=== PATIENT | male | born 1960 | race Caucasian/White ===

== ENCOUNTER 2018-02-07 21:45 | Emergency (ER) | payer MEDICAID, MEDICARE ==
[2018-02-07 22:37] LABS: #Eosinphils 0.1 thou/uL (0.0-0.7); #Lymphocytes 3.5 thou/uL (1.20-3.40); #Monocytes 1.2 thou/uL (0.11-0.59); #Neutrophils 5.5 thou/uL (1.40-6.50); %Basophils 0.2 % (0.0-1.0); %Eosinophils 0.7 % (0.0-10.0); %Monocytes 11.3 % (0.0-10.0); %Neutrophils 53.8 % (42.0-75.0); Mean Corpuscular HGB CONC 35.5 g/dL (32.0-36.0); Mean Corpuscular Volume 84.6 fl (80.0-94.0); Mean Platelet Volume 7.3 fL (7.4-10.4); Platelet Count 308 thou/uL (130-400); RBC Distribution Width 13.1 % (11.5-14.5); Red Blood Cell (RBC) Count 5.34 mill/uL (4.70-6.10); White Blood Cell (WBC) Count 10.2 thou/uL (4.8-10.8)
[2018-02-07 22:59] LABS: ALT (SGPT) 33 U/L (8-55); AST (SGOT) 27 U/L (5-34); Albumin 4.3 g/dL (3.5-5.0); Alkaline Phosphatase 102 U/L (40-150); Anion Gap 16 mmol/L (10-20); BUN (Urea Nitrogen) 25 mg/dL (8.4-25.7); Bilirubin, Total 0.4 mg/dL (0.2-1.2); Calc. Creatinine Clearance 0 mL/min (70-130); Calcium 9.5 mg/dL (7.8-10.44); Carbon Dioxide 20 mmol/L (22-29); Chloride 101 mmol/L (98-107); Estimated GFR-MDRD 32; Globulin 5.1 g/dL (2.4-3.5); Glucose 279 mg/dL (70-105); Potassium 4.7 mmol/L (3.5-5.1); Protein, Total 9.4 g/dL (6.0-8.3); Sodium 132 mmol/L (136-145)
[2018-02-07 23:02] LABS: CKMB 1.2 ng/mL (0-6.6); Troponin I Less than 0.010 ng/mL (< 0.028)
--- NOTE | 2018-02-07 23:48 | RAD ---
TWO VIEW CHEST SERIES: INDICATIONS: Cough. Pharyngitis. FINDINGS: The lungs are clear. No effusion or pneumothorax. The cardiac silhouette and mediastinal structures are of normal caliber. IMPRESSION: There is no focal consolidation. POS: [facility]
[2018-02-08 03:30] LABS: PTT 28.2 SEC (22.9-36.1); Prothrombin Time 13.3 SEC (12.0-14.7)
[2018-02-08 03:31] LABS: D-Dimer Test 0.55 *mcg/mL (0.27-0.43)
[2018-02-08] MEDS ORDERED: Ondansetron ODT 4 MG TAB ONE (03:37)
== END 2018-02-08 04:38 | disposition home or self-care (01) ==
LOC: ERS 21:45
DX: J40 Bronchitis, not specified as acute or chronic (principal); N17.9 Acute kidney failure, unspecified; Z71.6 Tobacco abuse counseling; B20 Human immunodeficiency virus [HIV] disease; I10 Essential (primary) hypertension; E11.9 Type 2 diabetes mellitus without complications; E78.00 Pure hypercholesterolemia, unspecified; F17.210 Nicotine dependence, cigarettes, uncomplicated
CPT/HCPCS: 36415; 71046; 80053; 82553; 83605; 83880; 84484; 85025; 85379; 85610; 85730; 93005; 94640; 96360; 99406; J7620; Q0162

== ENCOUNTER 2018-03-21 22:16 | Inpatient (IN) | payer MEDICARE, MEDICAID ==
[2018-03-21] MEDS ORDERED: Promethazine HCl 25 MG/ML VIAL ONE (23:10)
--- NOTE | 2018-03-21 23:33 | RAD ---
SINGLE VIEW OF THE CHEST: 03/21/18 COMPARISON: 11/11/16 HISTORY: Left flank pain and lower abdominal pain. Recent fever. FINDINGS: Single view of the chest shows a normal sized cardiomediastinal silhouette. There is no evidence of c onsolidation, mass, or pleural effusion. The bones are unremarkable. IMPRESSION: No evidence of acute cardiopulmonary disease. POS: [facility]
[2018-03-21 23:34] LABS: #Basophils 0.1 thou/uL (0.0-0.2); #Lymphocytes 3.4 thou/uL (1.20-3.40); #Monocytes 1.4 thou/uL (0.11-0.59); #Neutrophils 12.3 thou/uL (1.40-6.50); %Basophils 0.3 % (0.0-1.0); %Eosinophils 0.2 % (0.0-10.0); %Lymphocytes 19.7 % (21.0-51.0); %Monocytes 7.9 % (0.0-10.0); %Neutrophils 71.9 % (42.0-75.0); Hemoglobin 17.1 g/dL (14.0-18.0); Mean Corpuscular HGB CONC 37.3 g/dL (32.0-36.0); Mean Corpuscular Hemoglobin 30.7 pg (27.0-31.0); Mean Corpuscular Volume 82.2 fL (78.0-98.0); Mean Platelet Volume 6.9 fL (7.4-10.4); Platelet Count 269 thou/uL (130-400); RBC Distribution Width 13.5 % (11.5-14.5); Red Blood Cell (RBC) Count 5.58 mill/uL (4.70-6.10); White Blood Cell (WBC) Count 17.1 thou/uL (4.8-10.8)
[2018-03-21 23:44] LABS: Bilirubin Negative (Negative); Blood, Urine Small (Negative); Clarity CLOUDY (Clear); Glucose, Urine (Dipstick) >=1000 mg/dL (Negative); Leukocyte Moderate (Negative); Nitrite Negative (Negative); Protein, Urine (Dipstick) 30 mg/dL (Neg-Trace); Urobilinogen 0.2 mg/dL (0.2-1.0); pH, Urine 6.5 (5.0-9.0)
[2018-03-21 23:46] LABS: Bacteria/HPF 1+ HPF (None Seen); Hyaline Casts/LPF 0-3 HYALINE CAST LPF (0-3 Hyaline); Pathc Cast-AUWi Flag 0.29 (0-2.49); RBC/HPF 0-3 HPF (0-3); Squamous Epithelial None Seen HPF (0-3)
[2018-03-21 23:49] LABS: Yeast-AUWi Flag 171.5 (0-25.0)
[2018-03-21 23:50] LABS: CKMB 1.5 ng/mL (0-6.6); Troponin I Less than 0.010 ng/mL (< 0.028)
[2018-03-21 23:59] LABS: Yeast-All Forms None Seen HPF (None Seen)
[2018-03-22 00:07] LABS: ALT (SGPT) Less than 35 U/L (8-55); Albumin 4.3 g/dL (3.5-5.0); Alkaline Phosphatase 65 U/L (40-150); BUN (Urea Nitrogen) 11 mg/dL (8.4-25.7); CK (CPK) 133 U/L (30-200); Calc. Creatinine Clearance 0 mL/min (70-130); Calcium 9.4 mg/dL (7.8-10.44); Carbon Dioxide 18 mmol/L (22-29); Chloride 97 mmol/L (98-107); Estimated GFR-MDRD 88; Globulin 6.4 g/dL (2.4-3.5); Glucose 203 mg/dL (70-105); Lipase 113 U/L (8-78); Protein, Total 10.7 g/dL (6.0-8.3); Sodium 127 mmol/L (136-145)
[2018-03-22 00:58] LABS: AST (SGOT) 48 U/L (5-34)
[2018-03-22 01:05] LABS: Anion Gap 16 mmol/L (10-20)
[2018-03-22] MEDS ORDERED: Acetaminophen 325 MG TAB PO PRN (02:10)
[2018-03-22] MEDS ORDERED: Ondansetron HCl/PF 4 MG/2 ML Vial IVP PRN (02:10)
[2018-03-22] MEDS ORDERED: HYDROcodone/Acetaminophen 5/325 mg Tablet PO PRN ×2 (02:10)
[2018-03-22] MEDS ORDERED: Ondansetron ODT 4 MG TAB SL PRN (02:10)
[2018-03-22] MEDS ORDERED: Sodium Chloride 0.45% 1,000 ML IV SCH (02:15)
[2018-03-22] MEDS: Sodium Chloride 0.9% 1,000 ML IV SCH ×3 (02:22→17:58)
[2018-03-22] MEDS: Acetaminophen 325 MG TAB PO PRN (02:42)
[2018-03-22] MEDS: cefTRIAXone\\ROCEPHIN 1 GM in Sodium Chloride 0.9% 100 ML IVPB SCH (02:54)
[2018-03-22 03:15] LABS: #Basophils 0.1 thou/uL (0.0-0.2); #Lymphocytes 3.1 thou/uL (1.20-3.40); %Basophils 0.4 % (0.0-1.0); %Eosinophils 0.2 % (0.0-10.0); %Lymphocytes 20.3 % (21.0-51.0); %Monocytes 6.5 % (0.0-10.0); %Neutrophils 72.6 % (42.0-75.0); Hemoglobin 14.7 g/dL (14.0-18.0); Mean Corpuscular HGB CONC 36.1 g/dL (32.0-36.0); Mean Corpuscular Hemoglobin 30.2 pg (27.0-31.0); Mean Corpuscular Volume 83.7 fL (78.0-98.0); Mean Platelet Volume 7.1 fL (7.4-10.4); Platelet Count 245 thou/uL (130-400); RBC Distribution Width 13.4 % (11.5-14.5); Red Blood Cell (RBC) Count 4.87 mill/uL (4.70-6.10); White Blood Cell (WBC) Count 15.1 thou/uL (4.8-10.8)
[2018-03-22 03:32] LABS: Lactic Acid 1.2 mmol/L (0.5-2.2)
[2018-03-22] MEDS ORDERED: Dextrose 5% in Water 1,000 ML IV PRN (04:29)
[2018-03-22] MEDS ORDERED: Dextrose 50% Abboject 50 ML SYRINGE SLOW IVP PRN (04:29)
[2018-03-22 05:31] LABS: Chloride 104 mmol/L (98-107); Potassium 4.5 mmol/L (3.5-5.1); Sodium 130 mmol/L (136-145)
[2018-03-22 05:32] LABS: Glucose 195 mg/dL (70-105)
[2018-03-22 05:34] LABS: Anion Gap 13 mmol/L (10-20); Carbon Dioxide 18 mmol/L (22-29)
[2018-03-22 05:36] LABS: BUN (Urea Nitrogen) 10 mg/dL (8.4-25.7); Calc. Creatinine Clearance 105 mL/min (70-130); Estimated GFR-MDRD 73
--- NOTE | 2018-03-22 06:23 | HP ---
CODE STATUS: FULL CODE. TIME OF EVALUATION: 1:05 a.m. CHIEF COMPLAINT: Abdominal pain. HISTORY OF PRESENT ILLNESS: This is a 57-year-old male with past medical history of HIV, who follows with Dr. Sorensen as an outpatient, came to the hospital after having abdominal pain that was severe, starting this morning, but gets worse with food. The abdominal pain is mostly in the epigastric area, radiation to the left. Patient also reported recent fever of 100.4, now with nausea. The patient's symptoms started suddenly, have not improved. The CAT scan was done in ER showed patient has acute pancreatitis. Patient reported that he had pancreatitis in the past. Of note, Dr. Sorensen has been following this patient for HIV and has made recent changes in patient's home medications. List will need to be updated at this time. REVIEW OF SYSTEMS: Constitutional: No fever or chills or generalized weakness. Respiratory: No cough, no sputum production. Cardiovascular: No chest pain, palpitations, shortness of breath. Gastrointestinal: Patient has nausea, vomiting, no diarrhea, epigastric abdominal pain that is severe as described in HPI. STUDENT SUCCESS ADVISOR: No dizziness, headache, or feeling lightheaded. Genitourinary: No burning on urination. Extremities: No leg swelling. All other systems were reviewed and negative except for the findings mentioned above. PAST MEDICAL HISTORY: Positive for HIV, hypertension, diabetes, high cholesterol, pancreatitis. FAMILY HISTORY: Positive for father having diabetes. PAST SURGICAL HISTORY: Tonsillectomy, appendectomy, ureteral stricture removed. PSYCHIATRIC HISTORY: No previous psychiatric history. SOCIAL HISTORY: Former tobacco user, quit smoking past year. Drinks socially. No drug use. Lives at home with family. ALLERGIES: PENICILLIN and SULFA. REPORTED MEDICATIONS: Glimepiride, Pristiq, omeprazole, metformin, Prezista, VESIcare, fenofibrate, Crestor, Januvia. PHYSICAL EXAMINATION: VITAL SIGNS: On presentation blood pressure 151/93 with heart rate 120, respiratory rate was 22, abdominal pain 10/10, saturation was 98 on room air. GENERAL APPEARANCE: The Patient is alert, oriented, in distress due to abdominal pain. HEENT: Eyes: Normal conjunctivae. Moist oral mucosa, anicteric. NECK: No JVD. RESPIRATORY: Bilateral air entry. No rales, no wheezing. Symmetric expansion. CARDIOVASCULAR: Normal rate, regular rhythm. No murmurs, no gallop, no edema. ABDOMEN: The patient has tenderness. Abdomen is soft, normal bowel sounds. MUSCULOSKELETAL: Baseline range of motion and strength. No tenderness. SKIN: Warm and intact. No pallor, no rash, no redness. NEUROLOGIC: Baseline sensory. No evidence of any new focal weakness. Denies speech. Cranial nerves seems to be intact. PSYCHIATRIC: The patient is in a good mood. No anxiety, oriented, optimal judgment. LABORATORY DATA: Patient has white count of 17.1 with hemoglobin 17, MCV 82, platelet count 269. Sodium 127, potassium 4, chloride 97, carbon dioxide was 18 , anion gap 16, BUN 11, creatinine 0.89, GFR 88, glucose 203, lactic acid 2.2, calcium 9.4, magnesium 3. Total bilirubin 1, AST 48, serum total protein 10.7, albumin 4.3. UA was done. Patient has white count of urine greater than 50 too numerous to count. Chest x-ray was reviewed. The patient has no evidence of any acute cardiopulmonary disease. The abdomen for obesity was discussed with the ER physician, who was performing physician. There are findings for acute pancreatitis on the CAT scan. EKG was reviewed, discussed with the performing physician in ER. EKG shows sinus tachycardia at the rate of 125, incomplete right RBBB. No evidence of any acute ischemic changes. ASSESSMENT AND PLAN: The patient will be placed in the hospital with following medical problems: 1. SIS secondary to acute pancreatitis, possible sepsis secondary to urinary tract infection, patient has tachycardia, fever, has been started on antibiotics. We will continue for now. Follow up cultures. Adjust treatment as needed. 2. Acute pancreatitis was seen on the CAT scan. Official radiology report needs to be followed. Patient receiving IV fluids, pain medication. 3. History of human immunodeficiency virus. Patient will follow up with Dr. Sorensen as outpatient, as per patient report, his human immunodeficiency virus medication has been changed in the past few days by Dr. Sorensen. We will consult Dr. Sorensen for further recommendations given the fact that this patient is an immunosuppressed host of human immunodeficiency virus that place him at high risk of complications from infection. 4. Intractable nausea and vomiting. The patient needed antiemetic medications. We will continue to treat symptoms. 5. Intractable pain. Patient needed opioids iv medications for ultimate control of the pain. this plae him at high risk fom complications from treatment. 6. Uncontrolled hypertension. We will reconcile home medications, adjust treatment as needed, we will not treat aggressively given the fact that the patient has possible underlying sepsis. 7. Chronic hyponatremia. Patient had sodium 127, no symptoms, we will monitor , this is moderate, we will treat accordingly. 8. Uncontrolled diabetes with blood sugar 203, place the patient on sliding scale. 9. Deep venous thrombosis prophylaxis. MTDD
[2018-03-22] MEDS: Ondansetron HCl/PF 4 MG/2 ML Vial IVP PRN ×3 (07:40→21:52)
[2018-03-22] MEDS: Enoxaparin Sodium 40 MG/0.4 ML SYRINGE SC SCH (08:30)
[2018-03-22] MEDS: HumaLOG 300 UNITS/3 ML VIAL SC PRN ×2 (12:24→21:52)
--- NOTE | 2018-03-22 14:32 | CT ---
PRELIMINARY REPORT/[facility]/EMERGENTY AFTER-HOURS PROCEDURE CT Abdomen and Pelvis With Intravenous Contrast CLINICAL HISTORY: 57 years old, male; Pain; Abdominal pain; Generalized; Patient HX: M57 presents to ed C/O abd pain th at began this am. Pt reports n/v began this am. Pt reports food exacerbates n/v. Pt localizes abd amy n to l side. Pt notes bms are unchanged. Pt denies cp or SOB. Pt reports fever of 100.4. Pt denies diarrhea, dysuria. Pt used to have a suprapubic cath. Pt is seen by dr. Sorensen for hiv. Pt jose luis es ETOH use. TECHNIQUE: Axial computed tomography images of the abdomen and pelvis with intravenous contrast. Coronal reformatted images were created and reviewed. COMPARISON: No relevant prior studies available. FINDINGS: Lung bases: There is subpleural atelectasis of the dependent portions of the lungs. ABDOMEN: Liver: Normal. No mass. Gallbladder and bile ducts: Multiple calcified gallstones are present. No ductal dilation. Pancreas: There is moderate diffuse peripancreatic inflammatory stranding and fluid, consistent with moderate acute pancreatitis. There is a nonspecific 7 mm hypodensity within the body/tail of the panc reas. No ductal dilation. Spleen: The spleen is normal. Adrenals: The adrenal glands are normal. Kidneys and ureters: There is mild to moderate bilateral hydroureteronephrosis probably related to ps eudoobstruction in this patient with distended bladder. No obstructing ureterolithiasis. Stomach and bowel: The stomach is normal. The duodenum is unremarkable. No obstruction. No mucosal th ickening. PELVIS: Appendix: No findings to suggest acute appendicitis. Bladder: The bladder is moderately distended. Reproductive: The prostate gland demonstrates moderate nonspecific enlargement. The seminal vesicles are normal. ABDOMEN and PELVIS: Intraperitoneal space: Normal. No free air. No significant fluid collection. Bones/joints: No acute fracture. No dislocation. Soft tissues: Normal. Vasculature: The aorta demonstrates mild atherosclerotic calcification. No abdominal aortic aneurysm. Lymph nodes: There is a RIGHT pulmonary fissural lymph node. IMPRESSION: 1. Moderate acute pancreatitis. 2. There is mild to moderate bilateral hydroureteronephrosis probably related to pseudoobstruction in this patient with distended bladder. No obstructing ureterolithiasis. Thank you for allowing us to participate in the care of your patient. Dictated and Authenticated by: Devon Corbin MD 03/22/2018 1:18 AM Central Time ([place] & [place]) FINAL REPORT ABDOMEN CT WITH CONTRAST PELVIC CT WITH CONTRAST: HISTORY: Nausea and vomiting. COMPARISON: 03/11/16. TECHNIQUE: Abdomen and pelvic CT are performed with IV contrast. Enteric contrast was not administered. Ramirez l reformatted images were submitted for interpretation. FINDINGS: This report is in agreement with the preliminary report by [facility]. There is inflammatory change involvi ng the distal body and tail of the pancreas, compatible with pancreatitis. There is a hypodensity in the distal body of the pancreas measuring 1.3 cm, incompletely evaluated. There is bilateral dilata tion of the intra- and extrarenal collecting systems, left greater than right. Correlate clinically. Dilatation of both ureters is noted on the previous examination. There is CT evidence of cholelith iasis without evidence of cholecystitis. POS: [facility]
[2018-03-22] MEDS ORDERED: Midazolam HCl 2 mg/2 ml Vial ONE (15:12)
[2018-03-22] MEDS ORDERED: Sodium Bicarbonate 2.5 MEQ/5 ML VIAL ONE (15:12)
[2018-03-22] MEDS ORDERED: Fentanyl 100 MCG/2 ML VIAL ONE (15:13)
[2018-03-22 15:22] LABS: PTT 33.4 SEC (22.9-36.1); Prothrombin Time 13.8 SEC (12.0-14.7)
--- NOTE | 2018-03-22 16:42 | CT ---
PROCEDURE NOTE: Date: 03/22/18 PREPROCEDURE DIAGNOSIS: Urethral injury and bladder distention. POSTPROCEDURE DIAGNOSIS: Urethral injury and bladder distention. PROCEDURE: CT guided suprapubic catheter placement. SHOTBLAST EQUIPMENT OPERATOR: Dr. Martinez. ANESTHESIA: 10 mL buffered 1% lidocaine. TECHNIQUE: Prior to the procedure, the risks and benefits of a CT guided suprapubic catheter were explained to t he patient and he consented fully to the procedure. The patient was scanned with a fiducial marker in place on the lower abdominal wall. The area of best entry into the bladder was marked on the skin. This area was then prepped and draped in the usual st erile fashion. Lidocaine was used to anesthetize the skin and soft tissues down towards the urinary bladder. A scan was performed with the lidocaine needle, showing appropriate direction of the lidocaine needle in rel ation to the urinary bladder. A skin incision was made, allowing for passage of the Bard suprapubic catheter biopsy device. This de vice was placed with a [address] in [address]. After the return of urine, the balloon was insufflated. A repeat scan was performed, showing the catheter within the urinary bladder. The cathet er was retracted as this was folded back on itself. A repeat scan showed the Kaur catheter and ballo on within the urinary bladder. The Kaur catheter was then secured to the skin with an 0 silk suture. A total of 1100 mL of yellow, non-cloudy urine was removed from the urinary bladder at the time of t he procedure. The patient tolerated the procedure well, without immediate postprocedure complication. IMPRESSION: Status post successful CT guided suprapubic catheter placement. POS: [facility]
--- NOTE | 2018-03-22 19:16 | CON ---
DATE OF CONSULTATION: 03/22/2018 REASON FOR CONSULTATION: Possible UTI. HISTORY OF PRESENT ILLNESS: A 57-year-old known to me from multiple prior clinic and hospital visits , who has a history of longstanding HIV infection, well controlled with excellent adherence to antire troviral therapy and a CD4 cell count in mid 600s, type 2 diabetes, obesity, urethral strictures, whi ch had been previously managed with a suprapubic catheter and eventual urethroplasty, which I believe was performed at the [facility] and a previous episode of pancreatitis, which was quite severe, treated in the past with resolution, who now presents with new onset of abdominal pain, which localizes to the l eft flank, mid abdominal area and suprapubic region, which has been presenting over the past 2 days b efore admission. This was associated with tachycardia and mild elevation of temperature. PHYSICAL EXAMINATION: VITAL SIGNS: Initial findings included temperature 100, BP 130/60. LUNGS: Clear. HEART: Normal. ABDOMEN: With mild distention. No joint inflammatory activity noted. LABORATORY DATA: Initial white cell count 17,000, platelets 269 and creatinine 0.89. Lactic acid 2. 2, albumin 4.3, WBC count in urinalysis greater than 50 to too numerous to count. Chest x-ray withou t any infiltrates. The patient had an abdomen and pelvis CT scan completed and this demonstrated mod erate acute pancreatitis, mild to moderate bilateral hydroureteronephrosis and a distended gallbladde r. Initial lipase was 113, albumin 4.3, serum total protein 10.7. The patient when I examined him, he was in pain in the left flank and mid abdominal area. He also schwarz d marked tenderness in the suprapubic region. He denied any headaches, no shortness of breath, no di arrhea. He is still able to void without dysuria or frequency. No joint symptoms. PAST MEDICAL HISTORY: Longstanding HIV infection with excellent control on Prezista and Tivicay, pre vious episode of severe pancreatitis, abdominal pain, urethral stricture managed initially with supra pubic catheter, eventually, patient underwent a urethroplasty, I believe in mid 2016 at the [facility] and h ad been doing well after the procedure. The suprapubic catheter was able to be removed and he starte d to void again without the need for Kaur catheter. SOCIAL HISTORY: Chronic smoker. Lives alone in the area. ALLERGIES: PENICILLIN, SULFA DRUGS with rash. PAST SURGICAL HISTORY: Appendectomy, suprapubic catheter placement, urethroplasty. FAMILY HISTORY: Noncontributory. CURRENT MEDICATIONS: Include, Tylenol, ceftriaxone, dextrose, enoxaparin, glucagon, insulin, ondanse michelle. PHYSICAL EXAMINATION: VITAL SIGNS: T-max 100.4, now 99.6, blood pressure 150/90, pulse 107, respirations 18, O2 sat 95%. SKIN: The patient has a peripheral IV access. No Karu catheter, awake, oriented, pleasant. Sclera e are white. Pupils equal, conjunctivae normal. Oral cavity moist, quite a few teeth in place in de cent shape. NECK: Supple, no jugular distention or carotid bruits. LUNGS: Symmetric air entry without crackles or wheezing. CARDIOVASCULAR: S1, S2, regular rate. No S3, S4. No significant murmurs. ABDOMEN: Distended. Marked tenderness in suprapubic area with distention of the bladder. GENITAL: Normal. EXTREMITIES: No joint inflammatory activity. Pulses are 1+ in dorsalis pedis. Plantar responses ar e flexure. Strength in upper and lower extremities are preserved. NEUROLOGIC: Cognitive function appears to be intact. LABORATORY DATA: Sodium 127, creatinine 0.9 and 1.05. Liver profile with AST 48. Magnesium 3.0, li pase 113. White cell count to 17,000, now 15,000, hemoglobin 14, platelets 245. Urinalysis greater than 50 WBCs. Urine culture preliminary results indicate young culture, further incubation needed. Blood cultures still pending. CT findings had been discussed above. ASSESSMENT: 1. Longstanding human immunodeficiency virus infection with excellent viremia control and adequate C D4 cell count. 2. Urological complications with urethral stricture requiring suprapubic catheter placement and even tual urethroplasty last year at [facility]. 3. Episode of pancreatitis in the past. 4. Recurrence of the abdominal pain, low-grade temperature elevation, abnormal urinalysis. DISCUSSION: The clinical findings are consistent with obstruction of urinary tract with paradoxical overflow urine output associated with marked distention of the urinary bladder and hydronephrosis. T his is probably precipitating the mild elevation in the pancreatic enzymes. I do not think that the primary reason for admission was pancreatitis, but the urinary tract obstruction. Continue antimicro bial therapy as currently, add the antiretroviral therapy. The patient is on the medications that he should continue taking. I have contacted Dr. English, a radiologist and requested that he places a lobo prapubic catheter after discussing with Dr. Kang. After treatment of the infection, the patient w ill be eligible for revision of the urethroplasty.
[2018-03-23] MEDS: Sodium Chloride 0.9% 1,000 ML IV SCH ×4 (00:53→20:53)
[2018-03-23] MEDS: Ondansetron HCl/PF 4 MG/2 ML Vial IVP PRN ×3 (03:35→16:32)
[2018-03-23] MEDS: cefTRIAXone\\ROCEPHIN 1 GM in Sodium Chloride 0.9% 100 ML IVPB SCH (03:35)
[2018-03-23] MEDS: Acetaminophen 325 MG TAB PO PRN (04:43)
[2018-03-23 04:45] VITALS: BMI 32.4
[2018-03-23] MEDS: Enoxaparin Sodium 40 MG/0.4 ML SYRINGE SC SCH (08:12)
[2018-03-23] MEDS: HumaLOG 300 UNITS/3 ML VIAL SC PRN ×2 (11:53→20:56)
--- NOTE | 2018-03-23 19:28 | PDOC.PN ---
- Subjective Encounter Start Date: 03/23/18 Encounter Start Time: 19:25 Subjective: f/u for abd pain suspected source secondary to urinary outlet obstruction -: s/p suprapubic catheter placement with 1.1L drained. Feels better overall. -: Also concern for pancreatitis with mildly elevated Lipase. - Objective Resuscitation Status: Resuscitation Status FULL:Full Resuscitation MAR Reviewed: Yes Vital Signs & Weight: Vital Signs (12 hours) Temp Pulse Resp BP BP Pulse Ox 03/23/18 15:15 99.6 F 96 18 122/70 94 L 03/23/18 12:03 99.3 F 96 16 130/84 95 03/23/18 08:08 98.8 F 96 18 118/76 96 Weight Admit Weight 212 lb 12.8 oz Weight 213 lb 6.4 oz I&O: 03/22/18 03/23/18 03/24/18 06:59 06:59 06:59 Intake Total 800 3590 3340 Output Total 850 8077 3550 Balance -50 -4487 -210 Result Diagrams: 03/22/18 03:07 03/22/18 04:41 Additional Labs: Accuchecks 03/23/18 03/23/18 03/23/18 17:04 11:02 06:03 POC Glucose 186 H 200 H 165 H 03/22/18 20:50 POC Glucose 209 H Microbiology 03/21/18 23:29 Urine voided Urine Culture - Preliminary Coagulase Neg Staphylococcus 03/21/18 23:12 Venous blood - Right Hand Blood Culture - Preliminary NO GROWTH AT 48 HOURS 03/21/18 22:43 Venous blood - Left Arm Blood Culture - Preliminary NO GROWTH AT 48 HOURS Laboratory Tests 03/21/18 03/21/18 03/21/18 22:43 22:43 22:43 WBC 17.1 H Sodium 127 L Carbon Dioxide 18 L Lactic Acid 2.2 Magnesium 3.0 H Lipase 113 H 03/22/18 03:07 WBC Sodium Carbon Dioxide Lactic Acid 1.2 Magnesium Lipase Radiology Reviewed by me: Yes (CT abd/pel - pancreatitis, mild hydroureteronephrosis) EKG Reviewed by me: Yes (Tele - SR in 90's) Phys Exam - Physical Examination Constitutional: NAD HEENT: PERRLA, sclera anicteric, oral pharynx no lesions Neck: no nodes, no JVD, supple, full ROM Respiratory: no wheezing, no rales, no rhonchi, clear to auscultation bilateral S1, S2 Cardiovascular: RRR, no significant murmur, no rub, gallop mild TTP in mid-epigastric region obese, suprapubic catheter in place Gastrointestinal: soft, no distention, positive bowel sounds Musculoskeletal: pulses present, edema present Neurological: normal sensation, moves all 4 limbs Psychiatric: normal affect, A&O x 3 Skin: no rash, normal turgor, cap refill <2 seconds Dx/Plan (1) Urinary retention Code(s): R33.9 - RETENTION OF URINE, UNSPECIFIED Status: Acute Comment: s/p suprapubic catheter placement, monitor UOP (2) Complicated UTI (urinary tract infection) Code(s): N39.0 - URINARY TRACT INFECTION, SITE NOT SPECIFIED Status: Acute Comment: Staph spp initially on UCx, continue Rocephin pending final ID (3) Chronic pancreatitis Code(s): K86.1 - OTHER CHRONIC PANCREATITIS Status: Chronic Comment: sec to hypertriglyceridemia and meds, supportive mgmt (4) HIV (human immunodeficiency virus infection) Status: Chronic Comment: Resume antiretroviral therapy (5) Hydronephrosis, bilateral Code(s): N13.30 - UNSPECIFIED HYDRONEPHROSIS Status: Chronic Comment: Suprapubic catheter placed 03/22/18 (6) DM type 2 (diabetes mellitus, type 2) Status: Chronic Qualifiers: Diabetes mellitus termite helper insulin use: without termite helper use Diabetes mellitus complication status: with unspecified complications Qualified Code(s) : E11.8 - Type 2 diabetes mellitus with unspecified complications Comment: ISS, Metformin and Januvia, ADA - Plan continue antibiotics, PT/OT, director of social media marketing, out of bed/ambulate, DVT proph w/ SCDs Stable overall -: SPT placed 03/22/18 -: Continue Rocephin pending final Ucx results -: Restart antiretroviral therapy -: AM lab: CMP, CBC * .
[2018-03-23] MEDS ORDERED: Fluticasone Propionate Nasal Spray 16 gm Bottle NASAL PRN (19:44)
[2018-03-23] MEDS: Rosuvastatin 10 MG TAB PO SCH (20:53)
[2018-03-23] MEDS: TIVICAY 50 MG PO SCH (20:53)
[2018-03-23] MEDS: TROSPIUM 20 MG TABLET PO SCH (20:53)
[2018-03-23] MEDS ORDERED: Non-Formulary Item 1 EACH (Dolutegravir Sodium [Tivicay] 50 MG) PO SCH (21:00)
[2018-03-24] MEDS: Acetaminophen 325 MG TAB PO PRN ×2 (01:36→20:21)
[2018-03-24] MEDS: cefTRIAXone\\ROCEPHIN 1 GM, Admixture Fee 1 EACH in Sodium Chloride 0.9% 100 ML IVPB SCH (04:29)
[2018-03-24] MEDS: Sodium Chloride 0.9% 1,000 ML IV SCH ×3 (04:29→18:50)
[2018-03-24 05:38] LABS: Band 7 % (5-11); Eosinophils 3 % (0-10); Hemoglobin 13.4 g/dL (14.0-18.0); Lymphocytes 15 % (21-51); MDiff Complete? YES; Mean Corpuscular HGB CONC 31.9 g/dL (32.0-36.0); Mean Corpuscular Hemoglobin 27.4 pg (27.0-31.0); Mean Platelet Volume 6.8 fL (7.4-10.4); Monocytes 9 % (0-10); Neutrophil 66 % (42-75); Platelet Count 235 thou/uL (130-400); RBC Distribution Width 13.9 % (11.5-14.5); Red Blood Cell (RBC) Count 4.88 mill/uL (4.70-6.10); White Blood Cell (WBC) Count 11.1 thou/uL (4.8-10.8)
[2018-03-24 05:46] LABS: ALT (SGPT) 15 U/L (8-55); AST (SGOT) 13 U/L (5-34); Albumin 3.3 g/dL (3.5-5.0); Alkaline Phosphatase 48 U/L (40-150); Anion Gap 15 mmol/L (10-20); BUN (Urea Nitrogen) 8 mg/dL (8.4-25.7); Bilirubin, Total 0.4 mg/dL (0.2-1.2); Calc. Creatinine Clearance 107 mL/min (70-130); Calcium 8.7 mg/dL (7.8-10.44); Carbon Dioxide 16 mmol/L (22-29); Chloride 108 mmol/L (98-107); Estimated GFR-MDRD 76; Globulin 3.5 g/dL (2.4-3.5); Glucose 161 mg/dL (70-105); Potassium 3.9 mmol/L (3.5-5.1); Protein, Total 6.8 g/dL (6.0-8.3); Sodium 135 mmol/L (136-145)
[2018-03-24] MEDS: Ondansetron HCl/PF 4 MG/2 ML Vial IVP PRN ×2 (07:27→18:40)
--- NOTE | 2018-03-24 07:42 | PRG ---
DATE OF SERVICE: 03/24/2018 He is feeling much better, still with some pain in the suprapubic area. No chest pain, no dyspnea. No diarrhea. Patient had a suprapubic catheter placed by Radiology yesterday. PHYSICAL EXAMINATION: VITAL SIGNS: His T-max 99.6, blood pressure 130/70. GENERAL: Awake, alert, oriented. LUNGS: Clear. CARDIOVASCULAR: S1, S2, regular rate. ABDOMEN: Soft, not distended or maybe mildly distended, mild tenderness in suprapubic area. EXTREMITIES: Moves extremities equally. LABORATORY DATA: White cell count 11.1, hemoglobin 13, platelets 235, 66% neutrophils, 7% bands. Cr eatinine is down to 1.01. Sodium 135, albumin 3.3. Microbiology with coagulase negative Staph in e urine pending susceptibility studies. The patient is currently receiving ceftriaxone and will wait for the susceptibility results for final adjustment of antimicrobial therapy. The patient will continue suprapubic catheter, eventually will need a revision of the area of urethral stricture, probably will have to be done by the urologist patric o performed the procedure originally at [facility].
[2018-03-24] MEDS ORDERED: ICOSAPENT ETHYL 2 GM PO SCH (08:00)
[2018-03-24] MEDS: Glimepiride 4 MG TAB PO SCH (08:23)
[2018-03-24] MEDS: Enoxaparin Sodium 40 MG/0.4 ML SYRINGE SC SCH (08:23)
[2018-03-24] MEDS: TROSPIUM 20 MG TABLET PO SCH ×2 (08:23→20:21)
[2018-03-24] MEDS: metFORMIN 500 MG TAB PO SCH ×2 (08:23→16:04)
[2018-03-24] MEDS: Fenofibrate Nanocrystallized 145 MG TAB PO SCH (08:23)
[2018-03-24] MEDS: Alogliptin 6.25 MG TAB PO SCH (08:23)
[2018-03-24] MEDS: Venlafaxine HCl XR 75 MG CAP PO SCH (08:24)
[2018-03-24] MEDS ORDERED: TIVICAY 50 MG PO SCH (09:00)
[2018-03-24] MEDS ORDERED: Non-Formulary Item 1 EACH (Dolutegravir Sodium [Tivicay] 50 MG) PO SCH (09:00)
[2018-03-24] MEDS ORDERED: COBICISTAT PO SCH (09:00)
[2018-03-24] MEDS ORDERED: PREZCOBIX 800 MG PO SCH (09:00)
[2018-03-24] MEDS ORDERED: [UNRECOGNIZED DRUG - OTHER] PO SCH (09:00)
[2018-03-24] MEDS ORDERED: DARUNAVIR PO SCH (09:00)
--- NOTE | 2018-03-24 10:27 | PDOC.PN ---
- Subjective Encounter Start Date: 03/24/18 Encounter Start Time: 10:25 Complains of some low back pain on the right. Norris it while in the shower this morning. Appetite is getting better. Minimal abd discomfort. - Objective Resuscitation Status: Resuscitation Status FULL:Full Resuscitation MAR Reviewed: Yes Vital Signs & Weight: Vital Signs (12 hours) Temp Pulse Resp BP BP Pulse Ox 03/24/18 07:18 98 F 98 18 150/86 H 96 03/24/18 03:47 98.6 F 95 15 133/76 94 L Weight Admit Weight 212 lb 12.8 oz Weight 209 lb 11.2 oz I&O: 03/23/18 03/24/18 03/25/18 06:59 06:59 06:59 Intake Total 3590 6440 Output Total 8077 6800 Balance -9271 -618 Result Diagrams: 03/24/18 04:30 03/24/18 04:30 Additional Labs: Accuchecks 03/24/18 03/23/18 03/23/18 05:42 20:32 17:04 POC Glucose 162 H 209 H 186 H 03/23/18 11:02 POC Glucose 200 H Phys Exam - Physical Examination Constitutional: NAD Neck: no JVD, supple Respiratory: no wheezing, no rales, no rhonchi, clear to auscultation bilateral Cardiovascular: RRR, no significant murmur, no rub Gastrointestinal: soft Modest TTP in lower abd bilaterally with voluntary guarding (excessive) Dx/Plan (1) Urinary retention Code(s): R33.9 - RETENTION OF URINE, UNSPECIFIED Status: Acute Comment: s/p suprapubic catheter placement, monitor UOP (2) Complicated UTI (urinary tract infection) Code(s): N39.0 - URINARY TRACT INFECTION, SITE NOT SPECIFIED Status: Acute Comment: Staph spp initially on UCx, continue Rocephin pending final ID (3) Sepsis Code(s): A41.9 - SEPSIS, UNSPECIFIED ORGANISM Status: Resolved Qualifiers: Sepsis type: sepsis due to unspecified organism Qualified Code(s): A41.9 - Sepsis, unspecified organism Comment: due to uti with indwelling spc+ (4) Chronic pancreatitis Code(s): K86.1 - OTHER CHRONIC PANCREATITIS Status: Chronic Comment: sec to hypertriglyceridemia and meds, supportive mgmt (5) DM type 2 (diabetes mellitus, type 2) Status: Chronic Qualifiers: Diabetes mellitus [facility] insulin use: without [facility] use Diabetes mellitus complication status: with unspecified complications Qualified Code(s) : E11.8 - Type 2 diabetes mellitus with unspecified complications Comment: ISS, Metformin and [place] ADA (6) HIV (human immunodeficiency virus infection) Status: Chronic Comment: Resume antiretroviral therapy - Plan * Ambulate.
--- NOTE | 2018-03-24 11:38 | CT ---
PROCEDURE NOTE: Date: 03/22/18 PREPROCEDURE DIAGNOSIS: Urethral injury and bladder distention. POSTPROCEDURE DIAGNOSIS: Urethral injury and bladder distention. PROCEDURE: CT guided suprapubic catheter placement. WEB SEARCH EVALUATOR: Dr. Martinez. ANESTHESIA: 10 mL buffered 1% lidocaine. TECHNIQUE: Prior to the procedure, the risks and benefits of a CT guided suprapubic catheter were explained to t he patient and he consented fully to the procedure. The patient was scanned with a fiducial marker in place on the lower abdominal wall. The area of best entry into the bladder was marked on the skin. This area was then prepped and draped in the usual st erile fashion. Lidocaine was used to anesthetize the skin and soft tissues down towards the urinary bladder. A scan was performed with the lidocaine needle, showing appropriate direction of the lidocaine needle in rel ation to the urinary bladder. A skin incision was made, allowing for passage of the Bard suprapubic catheter biopsy device. This de vice was placed with a [address] After the return of urine, the balloon was insufflated. A repeat scan was performed, showing the catheter within the urinary bladder. The cathet er was retracted as this was folded back on itself. A repeat scan showed the Kaur catheter and ballo on within the urinary bladder. The Kaur catheter was then secured to the skin with an 0 silk suture. A total of 1100 mL of yellow, non-cloudy urine was removed from the urinary bladder at the time of t he procedure. The patient tolerated the procedure well, without immediate postprocedure complication. IMPRESSION: Status post successful CT guided suprapubic catheter placement.
[2018-03-24] MEDS: Rosuvastatin 10 MG TAB PO SCH (20:21)
[2018-03-24] MEDS: TIVICAY 50 MG PO SCH (20:21)
[2018-03-25] MEDS: Sodium Chloride 0.9% 1,000 ML IV SCH ×2 (02:06→12:11)
[2018-03-25] MEDS: cefTRIAXone\\ROCEPHIN 1 GM, Admixture Fee 1 EACH in Sodium Chloride 0.9% 100 ML IVPB SCH (02:06)
[2018-03-25] MEDS: Ondansetron HCl/PF 4 MG/2 ML Vial IVP PRN (06:33)
[2018-03-25] MEDS: TROSPIUM 20 MG TABLET PO SCH (08:11)
[2018-03-25] MEDS: Glimepiride 4 MG TAB PO SCH (08:11)
[2018-03-25] MEDS: Venlafaxine HCl XR 75 MG CAP PO SCH (08:11)
[2018-03-25] MEDS: Fenofibrate Nanocrystallized 145 MG TAB PO SCH (08:11)
[2018-03-25] MEDS: Alogliptin 6.25 MG TAB PO SCH (08:11)
[2018-03-25] MEDS: Enoxaparin Sodium 40 MG/0.4 ML SYRINGE SC SCH (08:12)
[2018-03-25] MEDS: metFORMIN 500 MG TAB PO SCH (08:12)
[2018-03-25 12:10] VITALS: BP 137/80; TEMP 98.5
== END 2018-03-25 15:34 | disposition home or self-care (01) | DRG 872 ==
LOC: ERS 22:16 → 2NO 03-22 01:06
PROVIDERS: ADMIT Hospitalist; ATTEND Hospitalist
PROC: 0T9B30Z Drainage of Bladder with Drainage Device, Percutaneous Approach (ICD-10-PCS; principal; 2018-03-22)
DX: A41.9 Sepsis, unspecified organism (principal); E87.1 Hypo-osmolality and hyponatremia; K86.1 Other chronic pancreatitis; N13.6 Pyonephrosis; I45.10 Unspecified right bundle-branch block; Z21 Asymptomatic human immunodeficiency virus [HIV] infection status; I10 Essential (primary) hypertension; E78.00 Pure hypercholesterolemia, unspecified; E11.65 Type 2 diabetes mellitus with hyperglycemia; R33.9 Retention of urine, unspecified; B95.7 Other staphylococcus as the cause of diseases classified elsewhere; E78.1 Pure hyperglyceridemia; Z88.0 Allergy status to penicillin; Z88.2 Allergy status to sulfonamides; Z87.19 Personal history of other diseases of the digestive system; Z83.3 Family history of diabetes mellitus; Z87.891 Personal history of nicotine dependence; Z79.899 Other long term (current) drug therapy; Z79.84 Long term (current) use of oral hypoglycemic drugs; Z87.448 Personal history of other diseases of urinary system; T50.905S Adverse effect of unspecified drugs, medicaments and biological substances, sequela; Y92.9 Unspecified place or not applicable
CPT/HCPCS: 36415; 36416; 51102; 71045; 74177; 77002; 80048; 80053; 81003; 81015; 82553; 83605; 83690; 83735; 84484; 85007; 85025; 85027; 85610; 85730; 87040; 87077; 87086; 87186; 93005; 94760; 96361; 96365; 96375; A4216; C2627; J0696; J1650; J1956; J2250; J2270; J2405; J2550; J3010; J7050

== ENCOUNTER 2018-04-13 03:27 | Inpatient (IN) | payer MEDICARE, MEDICAID ==
[2018-04-13] MEDS ORDERED: Ondansetron HCl/PF 4 MG/2 ML Vial ONE (05:16)
[2018-04-13] MEDS ORDERED: Morphine 4 MG/ML VIAL ONE (05:16)
[2018-04-13 05:57] LABS: #Basophils 0.1 thou/uL (0.0-0.2); #Monocytes 0.9 thou/uL (0.11-0.59); #Neutrophils 9.6 thou/uL (1.40-6.50); %Basophils 0.6 % (0.0-1.0); %Eosinophils 0.3 % (0.0-10.0); %Lymphocytes 15.6 % (21.0-51.0); %Monocytes 7.2 % (0.0-10.0); %Neutrophils 76.2 % (42.0-75.0); Hemoglobin 15.6 g/dL (14.0-18.0); Mean Corpuscular HGB CONC 34.3 g/dL (32.0-36.0); Mean Corpuscular Hemoglobin 28.5 pg (27.0-31.0); Mean Platelet Volume 6.6 fL (7.4-10.4); Platelet Count 356 thou/uL (130-400); RBC Distribution Width 13.7 % (11.5-14.5); Red Blood Cell (RBC) Count 5.46 mill/uL (4.70-6.10); White Blood Cell (WBC) Count 12.5 thou/uL (4.8-10.8)
[2018-04-13 06:09] LABS: ALT (SGPT) 38 U/L (8-55); AST (SGOT) 27 U/L (5-34); Albumin 4.2 g/dL (3.5-5.0); Alkaline Phosphatase 84 U/L (40-150); Anion Gap 19 mmol/L (10-20); BUN (Urea Nitrogen) 26 mg/dL (8.4-25.7); Bilirubin, Total 0.3 mg/dL (0.2-1.2); Calc. Creatinine Clearance 0 mL/min (70-130); Calcium 9.4 mg/dL (7.8-10.44); Carbon Dioxide 19 mmol/L (22-29); Chloride 99 mmol/L (98-107); Estimated GFR-MDRD 36; Globulin 4.2 g/dL (2.4-3.5); Glucose 310 mg/dL (70-105); Potassium 5.2 mmol/L (3.5-5.1); Protein, Total 8.4 g/dL (6.0-8.3); Sodium 132 mmol/L (136-145)
[2018-04-13 06:27] LABS: INR-International Normal Ratio 0.9; Prothrombin Time 12.4 SEC (12.0-14.7)
[2018-04-13 06:35] LABS: Lipase 2277 U/L (8-78)
[2018-04-13 06:56] LABS: PTT 25.4 SEC (22.9-36.1)
[2018-04-13] MEDS ORDERED: Dextrose 5% in Water 1,000 ML IV PRN (08:08)
[2018-04-13] MEDS ORDERED: Dextrose 50% Abboject 50 ML SYRINGE SLOW IVP PRN (08:08)
--- NOTE | 2018-04-13 08:59 | CT ---
PRELIMINARY REPORT/[facility]/EMERGENTY AFTER-HOURS PROCEDURE CT Abdomen and Pelvis With Intravenous Contrast EXAM DATE/TIME: 04/13/2018 6:07 AM CLINICAL HISTORY: 57 years old, male; Pain; Abdominal pain; Localized; Lower; Prior surgery; Patient HX: Er 6; M57 pres ents to the ed due to abd pain (lower abd) onset around midnight when he was going to bed. PT reports having x1 episode of vomiting and reports nausea. Urologist, cordell. PT reports having an appendectomy. TECHNIQUE: Axial computed tomography images of the abdomen and pelvis with intravenous contrast. Coronal reformatted images were created and reviewed. COMPARISON: CT Abdomen Pelvis W Con 2018-03-22 00:20 FINDINGS: Tubes, lines and devices: There is a suprapubic urinary bladder catheter. The catheter is in normal p osition. The urinary bladder is collapsed around the catheter. Lower thorax: There are moderate coronary vascular calcifications. There is atelectasis within the kye ngs. ABDOMEN: Liver: There is stable hepatomegaly that measures 21.6 cm craniocaudal length. No acute hepatic proce ss. Gallbladder and bile ducts: There is cholelithiasis without evidence of gallbladder inflammation. No evidence of stone within a bile duct. Pancreas: There is increased acute pancreatitis of the pancreatic tail. There is a stable 1.1 cm hypo dense lesion within the pancreatic tail on axial image 31. There is no portal vein thrombosis, arteri al pseudoaneurysm, pancreatic necrosis or organized intraperitoneal fluid collection. Spleen: Normal. No splenomegaly. Adrenals: Normal. No mass. Kidneys and ureters: Normal. No hydronephrosis. Stomach and bowel: There is mild reactive wall thickening of the proximal descending colon. There is no evidence of primary bowel inflammation or bowel obstruction. Appendix: No appendix is specifically identified. There is no fluid collection or inflammatory strand ing in the right lower quadrant. PELVIS: Bladder: Unremarkable as visualized. Reproductive: Unremarkable as visualized. ABDOMEN and PELVIS: Intraperitoneal space: No organized fluid collection or free gas. Bones/joints: There is a complex thoracolumbar curvature. There is no acute osseous fracture. Soft tissues: Unremarkable. Vasculature: There are mild calcifications of the aorta. Lymph nodes: Normal. No enlarged lymph nodes. IMPRESSION: 1. There is increased acute pancreatitis of the pancreatic tail. There is a stable 1.1 cm hypodense l esion within the pancreatic tail on axial image 31 which could be a small and intrapancreatic pseudoc yst or intraductal pancreatic mucinous neoplasm. There is no portal vein thrombosis, arterial pseudoaneurysm, pancreatic necrosis or organized intraperitoneal fluid collection. Recommend a single follow-up abdominal MRI in 1 year to reevaluate the hypodense pancreatic lesion. A limited T2-weight ed MRI can be performed for routine follow-up. 2. There is cholelithiasis without evidence of gallbladder inflammation. 3. There is stable hepatomegaly that measures 21.6 cm craniocaudal length. 4. Additional nonacute findings as described above. Thank you for allowing us to participate in the care of your patient. Dictated and Authenticated by: Pj Torres DO 04/13/2018 6:57 AM Central Time ([place] & [place]) FINAL REPORT EMERGENCY AFTER HOURS ABDOMEN AND PELVIS CT SCAN WITH IV CONTRAST: Date: 04/13/18 Time: 0609 hours IMPRESSION: Evidence for bibasilar pulmonary atelectasis. Pancreatitis changes involving primarily the tail of th e pancreas with a small, stable, 1.1 cm diameter hypodense focus in the pancreatic tail. Cholelithias is. Stable hepatomegaly with fatty change. Report in agreement with preliminary report given on-call by Carmel. POS: [facility]
[2018-04-13] MEDS ORDERED: Morphine 4 MG/ML Carpuject SLOW IVP PRN (09:47)
[2018-04-13] MEDS: Enoxaparin Sodium 40 MG/0.4 ML SYRINGE SC SCH (10:21)
[2018-04-13] MEDS: Sodium Chloride 0.9% 1,000 ML IV SCH ×3 (10:22→20:18)
[2018-04-13] MEDS: Famotidine/PF 20 mg/2ml Vial SLOW IVP SCH ×2 (10:49→22:23)
--- NOTE | 2018-04-13 11:16 | HP ---
CHIEF COMPLAINT: Abdominal pain. HISTORY OF PRESENT ILLNESS: This patient is a 57-year-old male with a history of known prior pancrea titis who presented to the emergency department complaining of abdominal pain that hit him around mid night last night. The patient reports the pain was primarily in the left upper quadrant area and was very sharp in nature, but tends to change in character over time. He had some associated nausea and vomiting, but that appears to be generally resolved at this time. He denies any associated fevers o r chills. He denies any significant alcohol intake. Of note, the patient was seen in the emergency department on the of this month with similar symp toms; however, he eloped from the emergency department after admission was recommended at that time. REVIEW OF SYSTEMS: A 10-system review was negative except for those things mentioned in the history of present illness with the exception that the patient reports he does have some increased pain in th e left upper abdomen when he takes a deep breath. PAST MEDICAL HISTORY: Notable for hypertension, diabetes, hyperlipidemia, prior episodes of pancreat itis and HIV positivity. The patient also has a urethral stricture and was here earlier this month w ith a urinary tract infection. He had some urine retention and ultimately required a suprapubic cath eter placement. PAST SURGICAL HISTORY: Tonsillectomy, appendectomy, urethral stricture and suprapubic catheter. FAMILY HISTORY: Primarily notable for his father having diabetes. SOCIAL HISTORY: The patient has a history of smoking, quit last year. Drinks socially. He states h e only has 1 beer occasionally. No drugs. The patient lives independently. CODE STATUS: He identifies a friend name Keith Gallegos who would be his surrogate decision maker and tiffany matamoros cannot think of any family members who would be involved in his care. He is full code. ALLERGIES: SULFA and PENICILLIN. MEDICATIONS: Januvia 50 mg every day, Glucophage 500 mg p.o. b.i.d., VESIcare 5 mg every day, Cresto r 40 mg q.p.m., omeprazole 40 mg p.o. daily, Vascepa 2 grams p.o. b.i.d., glimepiride 4 mg p.o. daily , Flonase 1 spray per nostril every day p.r.n., TriCor 148 mg every day. Dolutegravir 50 mg p.o. ary ly and q.p.m., desvenlafaxine 50 mg every day, Darunavir/cobicstat 800-50 one p.o. daily. PHYSICAL EXAMINATION: VITAL SIGNS: BP is 150/93, respirations 18, temperature 98.7, O2 sat 94% on room air. GENERAL APPEARANCE: Age appropriate male. He is in no acute distress, but appears mildly uncomforta ble. HEENT: PERRL. No OP lesions. TMs were normal. NECK: Supple and symmetric without lymphadenopathy. CARDIOVASCULAR: Regular rate and rhythm without murmurs, gallops or rubs. CHEST: Lungs are clear to auscultation bilaterally with good chest wall expansion and air exchange. ABDOMEN: Reveals tenderness to palpation in the upper epigastric and left upper quadrant areas, slig htly in the left lower quadrant area. He has modest voluntary guarding, no rebound. No masses palpa ble. Bowel sounds are present. EXTREMITIES: Warm and dry without edema. : Reveals the indwelling suprapubic catheter which appears healthy. LABORATORY DATA: White count is 12.5, hemoglobin 15.6, platelets 356. INR 0.9, PTT 25.4. Sodium 13 2, potassium 5.2, chloride is 99, CO2 is 19, BUN 26, creatinine 1.92, glucose 310. LFTs normal. Alb umin 4.2, lipase 2277. CT scan of the abdomen has not been read by the radiologist yet, but per ER appears to show some evid ence of pancreatitis. ASSESSMENT AND PLAN: 1. Acute pancreatitis in a patient with a history of pancreatitis. We will place the patient in the hospital in inpatient status and anticipate a 2-3 day stay. We will hydrate with normal saline. Of igor pain management and keep p.o. intake to a minimum. 2. Acute renal insufficiency. The patient has a baseline creatinine around 1, however, it tends to be very labile. We will continue to monitor with hydration. 3. Hyponatremia. This may be partially some pseudohyponatremia due to some hyperglycemia as well as dehydration. We will hydrate with normal saline and continue to follow. 4. Hypernatremia. The patient does not have a history of significant hypernatremia however, this ma y be due to the dehydration and diminished renal function. Anticipate this will improve with hydrati on alone. 5. Diabetes mellitus with hyperglycemia. The patient is not taking p.o. We will keep him on Accu-Ch eks and sliding scale insulin. 6. Urethral stricture with indwelling suprapubic catheter. This patient has seen his urologist, Dr. Ward as an outpatient following his previous admission. He did a cystoscopy which revealed a p ersistent urethral stricture which was supposed to be addressed later this week. I will keep the sup rapubic catheter in place. 7. Human immunodeficiency virus positive. We will continue with his antiviral medications once they have been confirmed. 8. Hypertension. We will allow some antihypertensive medications with sips of water. 9. Hyperlipidemia. We will continue with his usual home medications once they are clarified.
[2018-04-13] MEDS: HumaLOG 300 UNITS/3 ML VIAL SC PRN (11:36)
[2018-04-13] MEDS ORDERED: ISOVUE-370 76%-LOCM 1 ML ONE (11:53)
[2018-04-14] MEDS: Sodium Chloride 0.9% 1,000 ML IV SCH (05:37)
[2018-04-14 06:18] LABS: #Basophils 0.1 thou/uL (0.0-0.2); #Eosinphils 0.1 thou/uL (0.0-0.7); #Lymphocytes 2.3 thou/uL (1.20-3.40); #Monocytes 1.4 thou/uL (0.11-0.59); #Neutrophils 8.9 thou/uL (1.40-6.50); %Basophils 0.7 % (0.0-1.0); %Eosinophils 0.6 % (0.0-10.0); %Monocytes 11.1 % (0.0-10.0); %Neutrophils 69.6 % (42.0-75.0); Mean Corpuscular HGB CONC 32.3 g/dL (32.0-36.0); Mean Corpuscular Hemoglobin 27.6 pg (27.0-31.0); Mean Corpuscular Volume 85.4 fL (78.0-98.0); Mean Platelet Volume 6.4 fL (7.4-10.4); Platelet Count 313 thou/uL (130-400); RBC Distribution Width 14.1 % (11.5-14.5); Red Blood Cell (RBC) Count 5.43 mill/uL (4.70-6.10); White Blood Cell (WBC) Count 12.8 thou/uL (4.8-10.8)
[2018-04-14 06:40] LABS: Anion Gap 15 mmol/L (10-20); BUN (Urea Nitrogen) 17 mg/dL (8.4-25.7); Calc. Creatinine Clearance 100 mL/min (70-130); Calcium 9.1 mg/dL (7.8-10.44); Carbon Dioxide 19 mmol/L (22-29); Chloride 109 mmol/L (98-107); Estimated GFR-MDRD 73; Glucose 163 mg/dL (70-105); Potassium 4.2 mmol/L (3.5-5.1); Sodium 139 mmol/L (136-145)
--- NOTE | 2018-04-14 11:12 | PDOC.PN ---
- Subjective Encounter Start Date: 04/14/18 Encounter Start Time: 11:10 Patient seen and examined, states he doesn't have any more nausea or vomitting, abdominal pain is much better. Still present but better. No other new issues in the last 24 hours, all questions answered. No family at bedside. - Objective Vital Signs & Weight: Vital Signs (12 hours) Temp Pulse Resp BP Pulse Ox 04/14/18 07:48 99.5 F 104 H 20 115/63 20 L 04/14/18 05:30 97.9 F 102 H 17 137/81 94 L 04/13/18 23:52 99.5 F 108 H 18 111/60 94 L Weight Weight 201 lb 15.095 oz I&O: 04/13/18 04/14/18 04/15/18 06:59 06:59 06:59 Intake Total 931 Output Total 3110 Balance -2179 Result Diagrams: 04/14/18 06:00 04/14/18 06:00 Additional Labs: Accuchecks 04/14/18 04/13/18 04/13/18 05:33 23:52 17:58 POC Glucose 154 H 157 H 137 H 04/13/18 11:20 POC Glucose 225 H Phys Exam - Physical Examination Constitutional: NAD HEENT: PERRLA, moist MMs, sclera anicteric Neck: no nodes, no JVD, supple Respiratory: no wheezing, no rales, no rhonchi Cardiovascular: RRR, no significant murmur, no rub Gastrointestinal: soft, non-tender, no distention Musculoskeletal: no edema, pulses present Neurological: non-focal, normal sensation Dx/Plan (1) Pancreatitis Code(s): K85.90 - ACUTE PANCREATITIS WITHOUT NECROSIS OR INFECTION, UNSP Status: Acute (2) DM type 2 (diabetes mellitus, type 2) Status: Chronic Qualifiers: Comment: ISS, Metformin and Januvia, ADA (3) HIV (human immunodeficiency virus infection) Status: Chronic Comment: Resume antiretroviral therapy (4) Hypertriglyceridemia Code(s): E78.1 - PURE HYPERGLYCERIDEMIA Status: Chronic (5) Obesity Code(s): E66.9 - OBESITY, UNSPECIFIED Status: Chronic - Plan * Start low fat diet * DC IVFs for now * continue with current medical management * If patient tolerating diet and clinically improving can likely be discharged in 24-48hrs * case and plan d/w patient at length, he understands and agrees with this plan
[2018-04-14] MEDS: Enoxaparin Sodium 40 MG/0.4 ML SYRINGE SC SCH (12:03)
--- NOTE | 2018-04-14 12:31 | PQF ---
CLINICAL DOCUMENTATION IMPROVEMENT CLARIFICATION FORM: ICD-10 Updated PLEASE DO AN ADDENDUM TO THE PROGRESS NOTE WITH ANY DOCUMENTATION UPDATES OR ADDITIONS AND CARRY THROUGH TO DC SUMMARY. THANK YOU. DATE: 04/14 ATTN: DR. NATALIE HAQUE Please exercise your independent, professional judgment in responding to the clarification form. Clinical indicators are provided on the bottom of this form for your review. Please check appropriate box(s): [ ] Acute Renal Failure (ARF) / Acute Kidney Injury (BERTRAM) [ ] Other Etiology or underlying conditions related to the diagnosis of ARF/ BERTRAM: [ x ] Acute on Chronic Renal Failure please specify Stage of CKD ____3____ (see below) [ ] Other diagnosis [ ] Unable to determine National Kidney Foundation Guidelines for CKD Staging Stage I Kidney damage with normal or increased GFR GFR > 90 Stage II Kidney damage with mildly decreased GFR GFR 60-89 Stage III Kidney damage with moderately decreased GFR GFR 30-59 Stage IV Kidney damage with severely decreased GFR GFR 16-29 Stage V Kidney failure GFR<15 ESRD End Stage Renal Disease On dialysis For continuity of documentation, please document condition throughout progress notes and discharge summary. Thank You. CLINICAL INDICATORS - SIGNS / SYMPTOMS / LABS BUN/CR: 26 CR: 1.92 GFR: 36 (ON ADMIT, 04/13) 17 1.04 73 (04/14) PHYSICIAN H&P DOCUMENTATION 04/13: ASSESSMENT & PLAN: 2) ACUTE RENAL INSUFFICIENCY. THE PATIENT HAS A BASELINE CREATININE AROUND 1, HOWEVER, IT TENDS TO BE VERY LABILE. WE WILL CONTINUE TO MONITOR W/HYDRATION RISK FACTOR: PANCREATITIS W/ASSOCIATED N/V (H&P, 04/13) TREATMENT: IVF (NS (04/13 - ) NPO STATUS (04/13) THANK YOU! Gabrielle (This form is maintained as a part of the permanent medical record) 2014 [employer]. All Rights Reserved Gabrielle La RN, BSN [email or web address] Office: [phone] [facility]BLE HOSPITALBreanna
[2018-04-14] MEDS: HumaLOG 300 UNITS/3 ML VIAL SC PRN (13:28)
[2018-04-14] MEDS: Famotidine/PF 20 mg/2ml Vial SLOW IVP SCH (13:29)
[2018-04-14] MEDS: Famotidine 20 MG TAB PO SCH (20:01)
[2018-04-15] MEDS: HumaLOG 300 UNITS/3 ML VIAL SC PRN ×3 (06:37→17:13)
[2018-04-15] MEDS: Enoxaparin Sodium 40 MG/0.4 ML SYRINGE SC SCH (07:52)
[2018-04-15] MEDS: Famotidine 20 MG TAB PO SCH (07:52)
[2018-04-15 17:17] VITALS: BP 145/75; TEMP 98.3
--- NOTE | 2018-04-15 18:04 | PDOC.PN ---
- Subjective Encounter Start Date: 04/15/18 Encounter Start Time: 09:00 Subjective: Patient was seen and examined by me with CLASSIFIER in the room. -: Patient is ambulating in his room, Just finished his breakfast -: Denies fever, Nausea, Vomiting, Abdominal pain - Objective MAR Reviewed: Yes Vital Signs & Weight: Vital Signs (12 hours) Temp Pulse Resp BP Pulse Ox 04/15/18 17:16 98.3 F 99 16 145/75 H 97 04/15/18 11:58 97.7 F 99 16 132/83 94 L 04/15/18 08:00 98.1 F 99 16 127/86 94 L Weight Weight 201 lb 15.095 oz I&O: 04/14/18 04/15/18 04/16/18 06:59 06:59 06:59 Intake Total 931 2230 Output Total 3110 1450 1350 Balance -2179 -1450 880 Result Diagrams: 04/14/18 06:00 04/14/18 06:00 Additional Labs: Accuchecks 04/15/18 04/15/18 04/15/18 11:57 04:55 01:20 POC Glucose 281 H 188 H 260 H 04/14/18 20:27 POC Glucose 186 H Phys Exam - Physical Examination HEENT: PERRLA, moist MMs, TM's clear Neck: no JVD Respiratory: no wheezing, no rales, no rhonchi, clear to auscultation bilateral Cardiovascular: RRR, no significant murmur, no rub Gastrointestinal: soft, non-tender, no distention, positive bowel sounds Patient has suprapubic catheter in place Musculoskeletal: no edema, pulses present Neurological: non-focal, normal sensation, moves all 4 limbs Psychiatric: normal affect, A&O x 3 Skin: no rash, normal turgor, cap refill <2 seconds Dx/Plan (1) Pancreatitis Code(s): K85.90 - ACUTE PANCREATITIS WITHOUT NECROSIS OR INFECTION, UNSP Status: Acute Qualifiers: Chronicity: acute Pancreatitis type: alcohol induced Acute pancreatitis complication: no infection or necrosis Qualified Code(s): K85.20 - Alcohol induced acute pancreatitis without necrosis or infection Comment: IV fluids discontinued. Patient is tolerating his diet. Will discharge the patient after Lunch. Patient has been advised to follow up with his primary care physician in 7 days. (2) Acute renal failure (ARF) Status: Acute Qualifiers: Acute renal failure type: with other specified pathological lesion Qualified Code(s): N17.8 - Other acute kidney failure Comment: stable. (3) Urinary retention Code(s): R33.9 - RETENTION OF URINE, UNSPECIFIED Status: Chronic Comment: s/ p suprapubic catheter placement (4) Chronic suprapubic catheter Code(s): Z93.59 - OTHER CYSTOSTOMY STATUS Status: Chronic Comment: due to u.stricture (5) Chronic pancreatitis Code(s): K86.1 - OTHER CHRONIC PANCREATITIS Status: Chronic Comment: sec to Alcohol abuse, hypertriglyceridemia and meds. Advised to quit drinking alcohol (6) DM type 2 (diabetes mellitus, type 2) Status: Chronic Qualifiers: Comment: ISS, Metformin and Januvia, ADA (7) HIV (human immunodeficiency virus infection) Status: Chronic Comment: On antiretroviral therapy (8) Hypertriglyceridemia Code(s): E78.1 - PURE HYPERGLYCERIDEMIA Status: Chronic (9) Obesity Code(s): E66.9 - OBESITY, UNSPECIFIED Status: Chronic Comment: Diet andn exercise. Continue ASA, atorvastatin - Plan cont current plan of care, out of bed/ambulate * . - Discharge Day Minutes spent coordinating discharge of patient: 30 Encounter end time: 09:35 Review of Systems - Medications/Allergies Allergies/Adverse Reactions: Allergies Allergy/AdvReac Type Severity Reaction Status Date / Time Sulfa (Sulfonamide Allergy Severe Rash, Verified 11/11/16 17:17 Antibiotics) Chills Penicillins Allergy Intermediate Rash Verified 11/11/16 17:17
--- NOTE | 2018-04-16 14:46 | DIS ---
DATE OF ADMISSION: 04/13/2018 DATE OF DISCHARGE: 04/15/2018 DISCHARGE DIAGNOSES: 1. Acute pancreatitis. 2. Acute renal insufficiency. 3. History of hypertension. 4. Hyperlipidemia. 5. Human immunodeficiency virus positive. 6. Diabetes mellitus type 2. 7. Hyponatremia. PROCEDURES AND THERAPIES: Patient was brought into the hospital and admitted to be treated for acute pancreatitis. Patient was started on aggressive IV fluids. CT of the abdomen and pelvis was ordere d which showed acute pancreatitis of the pancreatic tail. Patient was then treated supportively. Vamshi reddy was made n.p.o. Patient was offered pain medication p.r.n. for his pain. For patient's acute renal insufficiency, patient was also hydrated. Patient had hyponatremia; however, this was most lik mercedes due to hypertonic hyponatremia due to hyperglycemia. HISTORY OF PRESENT ILLNESS AND HOSPITAL COURSE: The patient came in with abdominal pain that was loc ated in the left upper quadrant area. Per patient, the pain was very sharp in nature; therefore, the patient was admitted to the hospital and CT of the abdomen was ordered. Patient also complained of associated symptoms of nausea and vomiting. Per the hospital stay, patient was made n.p.o. and was s tarted on aggressive fluids. LABORATORY DATA: WBC was 12.8, hemoglobin is 15, platelets of 313. Coagulation: PT 12.4, INR 0.9, PTT 25.4. CONDITION ON DISCHARGE: The patient was seen on the day of discharge. Patient was ambulating withou t any difficulty. Patient denied any nausea, vomiting, fevers. Patient was tolerating diet and luis eduardo ent denied any abdominal pain. DISPOSITION: Patient's white count resolved. Patient denied any abdominal pain and the patient was tolerating his diet. Therefore, patient was started on home medications. The patient was discharged to follow up with his primary care doctor within a week. Patient was also advised to stop drinking alcohol. DISCHARGE MEDICATIONS: Kindly refer to electronic medical records for discharge medications.
== END 2018-04-15 17:20 | disposition home or self-care (01) | DRG 439 ==
LOC: ERS 03:27 → 3SE 09:45 → T4-B 04-14 18:03
PROVIDERS: ADMIT Internal Medicine; ATTEND Internal Medicine
DX: K85.90 Acute pancreatitis without necrosis or infection, unspecified (principal); E87.1 Hypo-osmolality and hyponatremia; N17.9 Acute kidney failure, unspecified; E86.0 Dehydration; E11.65 Type 2 diabetes mellitus with hyperglycemia; Z21 Asymptomatic human immunodeficiency virus [HIV] infection status; E66.9 Obesity, unspecified; K86.1 Other chronic pancreatitis; E78.1 Pure hyperglyceridemia; Z88.2 Allergy status to sulfonamides; Z88.0 Allergy status to penicillin; Z90.49 Acquired absence of other specified parts of digestive tract
CPT/HCPCS: 36415; 36416; 74177; 80048; 80053; 83690; 85025; 85610; 85730; 96361; 96374; 96375; A4216; J1650; J2270; J2405; S0028

== ENCOUNTER 2019-04-09 07:37 | Outpatient (CLI) | payer MEDICARE, MEDICAID ==
--- NOTE | 2019-04-09 09:24 | CT ---
CT PULMONARY LUNG SCAN: HISTORY: Heavy smoker for 10 years, then chewed tobacco for an additional 10 years. Smokes on and off. Quite approximately a year ago. Smoked 1-2 packs a day. FINDINGS: The lungs are clear of any infiltrative process. There are some minimal linear changes within the li ngula and left lower lobe which appear to represent scar. There is a pleural-based nodule seen along the major fissure on the right. It measures 6 mm. There is a right lower lobe pulmonary nodule. I t measures approximately 5 mm and is seen on axial image 148. No additional nodules are identified. Mediastinal structures appear unremarkable other than the presence of coronary calcifications. The v isualized liver parenchyma is normal. IMPRESSION: Lung RADS category 2: benign appearance or behavior. Continued annual screening followup with low-do se CT is recommended in 12 months. POS: [facility]
== END 2019-04-09 07:38 | disposition home or self-care (01) ==
LOC: CT 07:37
PROVIDERS: ATTEND Family Medicine Sports Medicine
DX: Z87.891 Personal history of nicotine dependence (principal)
CPT/HCPCS: G0297

== ENCOUNTER 2019-05-11 11:37 | Inpatient (IN) | payer MEDICARE, MEDICAID ==
--- NOTE | 2019-05-11 12:13 | RAD ---
EXAM: CHEST ONE VIEW HISTORY: Fever and chills. COMPARISON: 03/21/2018 FINDINGS: Cardiac silhouette is magnified by projection. Pulmonary vasculature is within normal limits. The jah gs are clear. Mild degenerative changes are seen in the spine. Chest is stable from prior exam. IMPRESSION: No acute cardiopulmonary process.
[2019-05-11 12:28] LABS: Bacteria/HPF 4+ HPF (None Seen); Bilirubin Negative (Negative); Blood, Urine 1+ (Negative); Clarity Turbid (Clear); Glucose, Urine (Dipstick) Greater than 1000 mg/dL (Negative); Leukocyte 500 Leu/uL (Negative); Nitrite Negative (Negative); Protein, Urine (Dipstick) 20 mg/dL (Neg-Trace); RBC/HPF 0-3 HPF (0-3); Squamous Epithelial 0-3 HPF (0-3); Urobilinogen Normal mg/dL (Less than 2); WBC/HPF Greater than 50 HPF (0-3)
[2019-05-11 12:44] LABS: #Eosinphils 0.1 thou/uL (0.0-0.7); #Lymphocytes 2.2 thou/uL (1.20-3.40); #Monocytes 0.8 thou/uL (0.11-0.59); %Basophils 0.2 % (0.0-1.0); %Eosinophils 0.7 % (0.0-10.0); %Lymphocytes 16.8 % (21.0-51.0); %Monocytes 6.3 % (0.0-10.0); Hemoglobin 16.6 g/dL (14.0-18.0); Mean Corpuscular HGB CONC 35.4 g/dL (32.0-36.0); Mean Corpuscular Volume 81.9 fL (78.0-98.0); Mean Platelet Volume 7.6 fL (7.4-10.4); Platelet Count 298 thou/uL (130-400); RBC Distribution Width 13.6 % (11.5-14.5); Red Blood Cell (RBC) Count 5.72 mill/uL (4.70-6.10); White Blood Cell (WBC) Count 13.2 thou/uL (4.8-10.8)
[2019-05-11 12:47] LABS: ALT (SGPT) 19 U/L (8-55); AST (SGOT) 20 U/L (5-34); Albumin 4.3 g/dL (3.5-5.0); Alkaline Phosphatase 92 U/L (40-150); Anion Gap 23 mmol/L (10-20); BUN (Urea Nitrogen) 31 mg/dL (8.4-25.7); Bilirubin, Total 0.5 mg/dL (0.2-1.2); Calc. Creatinine Clearance 0 mL/min (70-130); Calcium 9.5 mg/dL (7.8-10.44); Carbon Dioxide 15 mmol/L (22-29); Chloride 97 mmol/L (98-107); Estimated GFR-MDRD 41; Globulin 4.6 g/dL (2.4-3.5); Glucose 145 mg/dL (70-105); Potassium 4.3 mmol/L (3.5-5.1); Protein, Total 8.9 g/dL (6.0-8.3); Sodium 131 mmol/L (136-145)
[2019-05-11] MEDS ORDERED: Acetaminophen 325 MG TAB ONE (12:54)
[2019-05-11] MEDS ORDERED: cefTRIAXone\\ROCEPHIN 1 GM VIAL ONE (13:51)
[2019-05-11] MEDS ORDERED: Ondansetron ODT 4 MG TAB SL PRN (16:02)
[2019-05-11] MEDS ORDERED: Ondansetron PF 4 MG/2 ML Vial IVP PRN (16:02)
[2019-05-11] MEDS ORDERED: Acetaminophen 325 MG TAB PO PRN (16:02)
[2019-05-11 16:57] VITALS: BMI 31.8
[2019-05-11] MEDS ORDERED: Hyoscyamine Sulfate SL 0.125 mg Tablet SL PRN (18:52)
[2019-05-11] MEDS ORDERED: Dextrose 5% in Water 1,000 ML IV PRN (18:53)
[2019-05-11] MEDS ORDERED: Bisacodyl 10 MG SUPP PR PRN (18:53)
[2019-05-11] MEDS ORDERED: Dextrose 50% Abboject 50 ML SYRINGE SLOW IVP PRN (18:53)
--- NOTE | 2019-05-11 20:19 | HP ---
PRIMARY CARE PROVIDER: Dr. Osman Clarke. CHIEF COMPLAINT: Fever. HISTORY OF PRESENT ILLNESS: Mr. Harvey is a pleasant 58-year-old gentleman, who was seen at [facility] on May 11, 2019. He was hospitalized at this facility in March 2018 for bladder outlet obstruction, requiring suprapubic catheter placement, urinary tract infection with staphylococcal epidermidis, sepsis, chronic HIV, and pancreatitis. He reports that the suprapubic catheter was removed late last year. He has not had any urinary problems since then. He reports being compliant with all his medications. Over the last 3 days, he has had brownish-yellow urine with blood clots. He also had chills this morning with a temperature of 101.2 degrees Fahrenheit. He denies any chest pain. He reports chronic pain in his right testicle following his surgery. REVIEW OF SYSTEMS: All systems were reviewed and found to be negative. PAST MEDICAL HISTORY: HIV, hypertension, diabetes mellitus, dyslipidemia, and pancreatitis. PAST SURGICAL HISTORY: Tonsillectomy, appendectomy, surgery for urethral stricture. SOCIAL HISTORY: The patient denies tobacco use, alcohol use, or recreational drug use. ALLERGIES: PENICILLIN AND SULFA. CURRENT MEDICATIONS: 1. Crestor 40 mg every other day. 2. Hyoscyamine 0.125 mg every 6 hours as needed. 3. Azelastine nasal spray 1 spray to each naris 2 times a day. 4. Prezcobix 1 tablet daily. 5. Pristiq 50 mg daily. 6. Tivicay 50 mg daily. 7. Jardiance 25 mg daily. 8. Ezetimibe 10 mg daily. 9. Fenofibrate 145 mg daily. 10. Glimepiride 4 mg daily. 11. Vascepa 2 g 2 times a day. 12. Metformin 1000 mg 2 times a day. 13. Omeprazole 40 mg daily. 14. Januvia 50 mg daily. 15. Solifenacin 5 mg daily. FAMILY HISTORY: He denies any family history of premature coronary artery disease. PHYSICAL EXAMINATION: GENERAL: On examination, Mr. Harvey is awake and alert, not in acute distress. VITAL SIGNS: Blood pressure is 124/77, pulse is 102, respiratory rate is 20, oxygen saturation 94% on room air, and temperature is 99.4. He is obese, with a BMI of 31.8. EYES: No scleral icterus. No conjunctival pallor. ENT: Moist mucosal membranes. No oropharyngeal erythema or exudates. NECK: Supple, nontender, trachea is midline. RESPIRATORY: Accessory muscles of breathing are not active. Chest wall movements are symmetric bilaterally. LUNGS: Clear to auscultation without wheeze, rhonchi, or crepitations. CARDIOVASCULAR: S1 and S2 are heard, regular. Peripheral pulses palpable. No carotid bruit. No pericardial rub. ABDOMEN: Soft, nontender, bowel sounds are heard. GENITOURINARY: No lesions. NEUROLOGIC: Cranial nerves 2 through 12 intact, deep tendon reflexes 2+. SKIN: No rashes or subcutaneous nodules. MUSCULOSKELETAL: Power is 5/5 in all 4 extremities. LYMPHATIC: No cervical lymphadenopathy. PSYCHIATRIC: Normal mood, normal affect, the patient is oriented to person, place, and time. LABORATORY DATA: Mr. Harvey's labs and investigations were reviewed. I reviewed his electrocardiogram, which shows sinus tachycardia, no ST changes to suggest an acute coronary syndrome. I also reviewed his chest x-ray, which does not show any pulmonary infiltrates. He has leukocytosis with 13,200 white cells, of which 76% are neutrophils. Hemoglobin and platelet count are normal. He has hyponatremia with sodium of 131, normal potassium, decreased carbon dioxide of 15, elevated anion gap of 23, elevated blood urea nitrogen of 31, elevated creatinine of 1.70, glucose is mildly elevated at 145, normal AST, normal ALT, normal alkaline phosphatase, normal troponin-I, and normal albumin. Urinalysis is positive for leukocyte esterase, negative for nitrite. There are also 0 to 3 squamous epithelial cells and 4+ bacteria. ASSESSMENT AND PLAN: Mr. Harvey is a pleasant 58-year-old gentleman, who was seen at [facility] on May 11, 2019. His problem list includes: 1. Severe sepsis: Mr. Harvey is presenting with severe sepsis with acute kidney injury. Most likely source of infection is the urinary tract. He will be admitted to the hospital for further management. He will receive intravenous fluids and antibiotics. 2. Urinary tract infection: The patient has received levofloxacin and ceftriaxone. We will also cover him with vancomycin until it is clear what we are dealing with. We will consult Infectious Disease Service for opinion and help with management. 3. Acute kidney injury: Provide intravenous hydration, hold nephrotoxic medications, recheck creatinine. 4. Metabolic acidosis: Most likely secondary to sepsis and uremia. We will recheck labs in the morning after treating. 5. Diabetes mellitus type 2: Hold metformin, continue the rest of his home medications. 6. History of human immunodeficiency virus: Continue home medications. 7. Hypertension: Monitor vital signs, titrate antihypertensives as needed. 8. Dyslipidemia: Continue ezetimibe and fenofibrate. Also continue Crestor. LEVEL OF RISKS: High. LEVEL OF COMPLEXITY: High. Many thanks for allowing me to participate in your patient's care. Please feel free to contact me with any questions or concerns. Job ID: [id number]
[2019-05-11] MEDS ORDERED: Rosuvastatin 20 MG TAB PO SCH (21:00)
[2019-05-11] MEDS: Sodium Chloride 0.9% 1,000 ML IV SCH (21:09)
[2019-05-11] MEDS: Trospium 20 MG TAB PO SCH (21:10)
[2019-05-11] MEDS: Azelastine 137 MCG/Spray 30 ML NS SCH (22:58)
[2019-05-11] MEDS ORDERED: Dolutegravir Sodium [Tivicay] 50 MG PO SCH (23:00)
[2019-05-11] MEDS ORDERED: Darunavir/Cobicistat [Prezcobix 800 Mg-150 Mg Tablet] PO SCH (23:00)
[2019-05-12] MEDS: Sodium Chloride 0.9% 1,000 ML IV SCH ×2 (04:12→13:55)
[2019-05-12] MEDS: HumaLOG 300 UNITS/3 ML VIAL SC PRN ×2 (04:30→12:29)
[2019-05-12 04:52] LABS: #Eosinphils 0.1 thou/uL (0.0-0.7); #Lymphocytes 2.2 thou/uL (1.20-3.40); #Neutrophils 6.1 thou/uL (1.40-6.50); %Basophils 0.5 % (0.0-1.0); %Eosinophils 1.2 % (0.0-10.0); %Lymphocytes 23.1 % (21.0-51.0); %Monocytes 10.3 % (0.0-10.0); %Neutrophils 64.9 % (42.0-75.0); Hemoglobin 14.4 g/dL (14.0-18.0); Mean Corpuscular HGB CONC 33.3 g/dL (32.0-36.0); Mean Corpuscular Hemoglobin 27.7 pg (27.0-31.0); Mean Corpuscular Volume 83.1 fL (78.0-98.0); Mean Platelet Volume 7.3 fL (7.4-10.4); Platelet Count 263 thou/uL (130-400); RBC Distribution Width 13.7 % (11.5-14.5); Red Blood Cell (RBC) Count 5.18 mill/uL (4.70-6.10); White Blood Cell (WBC) Count 9.4 thou/uL (4.8-10.8)
[2019-05-12 05:17] LABS: Anion Gap 18 mmol/L (10-20); BUN (Urea Nitrogen) 23 mg/dL (8.4-25.7); Calc. Creatinine Clearance 81 mL/min (70-130); Carbon Dioxide 17 mmol/L (22-29); Chloride 106 mmol/L (98-107); Estimated GFR-MDRD 56; Glucose 152 mg/dL (70-105); Potassium 3.9 mmol/L (3.5-5.1); Sodium 137 mmol/L (136-145)
[2019-05-12] MEDS ORDERED: COBICISTAT PO SCH (08:00)
[2019-05-12] MEDS ORDERED: DARUNAVIR PO SCH (08:00)
[2019-05-12] MEDS: Glimepiride 4 MG TAB PO SCH (08:06)
[2019-05-12] MEDS: Fenofibrate Nanocrystallized 145 MG TAB PO SCH (08:07)
[2019-05-12] MEDS: Venlafaxine HCl XR 75 MG CAP PO SCH (08:07)
[2019-05-12] MEDS: Alogliptin 25 MG TAB PO SCH (08:07)
[2019-05-12] MEDS: Trospium 20 MG TAB PO SCH ×2 (08:07→20:01)
[2019-05-12] MEDS: Ezetimibe 10 MG TAB PO SCH (08:08)
[2019-05-12] MEDS: Empagliflozin [Jardiance] 25 MG PO SCH (08:12)
[2019-05-12] MEDS: ICOSAPENT ETHYL 1 GM PO SCH ×2 (08:12→20:03)
[2019-05-12] MEDS: Azelastine 137 MCG/Spray 30 ML NS SCH ×2 (08:14→20:02)
[2019-05-12] MEDS ORDERED: (Dolutegravir Sodium [Tivicay] 50 MG) PO SCH (09:00)
[2019-05-12] MEDS: cefTRIAXone\\ROCEPHIN 1 GM in Sodium Chloride 0.9% 100 ML IVPB SCH (13:55)
--- NOTE | 2019-05-12 16:22 | PDOC.HOSPP ---
- Subjective Encounter Date: 05/12/19 Encounter Time: 08:40 Subjective: Pt seen for followup re; severe sepsis. Feels better. - Objective Vital Signs & Weight: Vital Signs (12 hours) Temp Pulse Resp BP Pulse Ox 05/12/19 11:00 98.3 F 97 20 131/88 95 05/12/19 08:00 96 05/12/19 07:59 97.9 F 99 16 136/82 96 Weight Weight 209 lb 7 oz I&O: 05/11/19 05/12/19 05/13/19 06:59 06:59 06:59 Intake Total 4540 960 Balance 4540 960 Result Diagrams: 05/12/19 04:18 05/12/19 04:18 Additional Labs: Accuchecks 05/12/19 05/12/19 05/11/19 11:31 04:32 19:58 POC Glucose 171 H 152 H 290 H 05/11/19 16:40 POC Glucose 144 H Labs and MARs reviewed by me Hospitalist ROS - Review of Systems Constitutional: denies: fever, chills, sweats, weakness, malaise Cardiovascular: denies: chest pain, palpitations, orthopnea, paroxysmal noc. dyspnea, edema, light headedness Gastrointestinal: denies: nausea, vomitting, abdominal pain, diarrhea, constipation, melena, hematochezia Genitourinary: reports: hematuria. denies: dysuria, frequency, incontinence, retention Musculoskeletal: denies: neck pain, shoulder pain, arm pain, back pain, hand pain, leg pain, foot pain - Medication Medications: Active Medications Generic Name Dose Route Start Last Admin Trade Name Reginoq PRN Reason Stop Dose Admin Alogliptin Benzoate 12.5 mg 05/12/19 09:00 05/12/19 08:07 Alogliptin PO 12.5 mg DAILY SANTANA Administration Azelastine HCl 0 ml 05/11/19 21:00 05/12/19 08:14 Azelastine NS 1 spray BID SANTANA Administration Ezetimibe 10 mg 05/12/19 09:00 05/12/19 08:08 Zetia PO 10 mg DAILY SANTANA Administration Fenofibrate 145 mg 05/12/19 09:00 05/12/19 08:07 Tricor PO 145 mg DAILY SANTANA Administration Glimepiride 4 mg 05/12/19 07:30 05/12/19 08:06 Amaryl PO 4 mg DAILY-AC SANTANA Administration Ceftriaxone Sodium 1 gm/ 100 mls @ 200 mls/hr 05/12/19 14:00 05/12/19 13:55 Sodium Chloride IVPB 100 mls 1400 SANTANA Administration Levofloxacin 750 mg/ Device 150 mls @ 100 mls/hr 05/12/19 12:00 05/12/19 11: 40 IVPB 150 mls 1200 SANTANA Administration Sodium Chloride 1,000 mls @ 100 mls/hr 05/11/19 19:00 05/12/19 13:55 Normal Saline 0.9% IV 1,000 mls .Q10H SANTANA Administration Insulin Human Lispro 0 units 05/11/19 18:53 05/12/19 12:29 Humalog SC 2 unit .MILD SLIDING SCALE PRN Administration Mild Correctional Scale Pantoprazole Sodium 40 mg 05/12/19 09:00 05/12/19 08:07 Protonix PO 40 mg DAILY SANTANA Administration Empagliflozin [ 0 each 05/12/19 09:00 05/12/19 08:12 Jardiance] 25 Mg PO 1 each DAILY SANTANA Administration Icosapent Ethyl [ 0 each 05/12/19 09:00 05/12/19 08:12 Vascepa] 1g Cap PO 2 each BID SANTANA Administration Trospium 20 mg 05/11/19 21:00 05/12/19 08:07 Trospium PO 20 mg BID SANTANA Administration Venlafaxine HCl 75 mg 05/12/19 09:00 05/12/19 08:07 Effexor Xr PO 75 mg DAILY SANTANA Administration - Exam General Appearance: awake alert General - other findings: Obese Eye: anicteric sclera ENT: normocephalic atraumatic, moist mucosa Neck: supple, symmetric, no JVD, no thyromegaly Heart: RRR, no gallops, no rubs, normal peripheral pulses Respiratory: CTAB, no wheezes, no rales, no ronchi Gastrointestinal: soft, non-tender, non-distended, normal bowel sounds Neurological: no weakness Psychiatric: normal affect, normal behavior, A&O x 3 Hosp A/P (1) Severe sepsis Code(s): A41.9 - SEPSIS, UNSPECIFIED ORGANISM; R65.20 - SEVERE SEPSIS WITHOUT SEPTIC SHOCK Status: Acute (2) UTI (urinary tract infection) Status: Acute (3) Acute worsening of stage 3 chronic kidney disease Code(s): N18.3 - CHRONIC KIDNEY DISEASE, STAGE 3 (MODERATE) Status: Acute (4) DM type 2 (diabetes mellitus, type 2) Status: Chronic (5) HIV (human immunodeficiency virus infection) Status: Chronic - Plan continue antibiotics, out of bed/ambulate Severe sepsis improved. Discontinue vancomycin, continue ceftriaxone and levofloxacin for UTI secondary to presumptive Kleb/Enterobacter. Await sensitivities. Creatinine improved to 1.32. Consult walking program. Leucocytosis resolved. Metabolic acidosis improved. Anion gap normal today. Consult walking program. Continue Tivicay and Prezcobix for HIV. Blood sugars high, switch to moderate insulin sliding scale.
[2019-05-12] MEDS ORDERED: HumaLOG 300 UNITS/3 ML VIAL SC PRN (16:35)
--- NOTE | 2019-05-12 17:05 | CT ---
CT ABDOMEN NONCONTRAST CT PELVIS NONCONTRAST: (Urolithiasis protocol) DATE: 05/12/2019 HISTORY: 58-year-old male with urinary tract infection, fever, and urethral stricture. COMPARISON: 04/13/2018 TECHNIQUE: IV injection of iodinated contrast media: None Oral contrast media: None FINDINGS: Other than for urolithiasis, the lack of IV and oral contrast limits the evaluation. The Kaur catheter is no longer present. The bladder is now severely distended. It has thin, normal w all thickness. There is bilateral moderate hydroureter and bilateral hydronephrosis, moderate to severe. No calculus in the ureters, kidneys, or bladder. Enlarged prostate. Previously demonstrated a cute pancreatitis is no longer present. No pancreatic calcifications or pancreatic ductal dilation. Layer of multiple tiny gallstones near the gallbladder neck again demonstrated. No pericholecystic ed samina. Fatty liver. No splenomegaly. No abdominal aortic aneurysm. Normal adrenals and pancreas, within the limitations of a noncontrast scan. No small bowel dilation. No colonic diverticulitis. No ascites or pneumoperitoneum. No abscess. No co nsolidation or pleural effusion at lung bases. IMPRESSION: 1. Bilateral moderate to severe hydronephrosis, without urolithiasis. This is probably due to the sev erely distended urinary bladder. Consider Kaur catheter. 2. Hepatic steatosis. 3. Cholelithiasis without evidence of acute cholecystitis.
[2019-05-12] MEDS: Dolutegravir Sodium [Tivicay] 50 MG PO SCH (20:02)
[2019-05-12] MEDS: Darunavir/Cobicistat [Prezcobix 800 Mg-150 Mg Tablet] PO SCH (20:05)
[2019-05-12] MEDS ORDERED: Rosuvastatin 20 MG TAB PO SCH (21:00)
--- NOTE | 2019-05-12 21:22 | CON ---
DATE OF CONSULTATION: 05/12/2019 REASON FOR CONSULTATION: Urinary tract infection. HISTORY OF PRESENT ILLNESS: A 58-year-old known to us from multiple prior visits both here as well as the clinic with a longstanding history of HIV infection, prior episode of pancreatitis, urethral stricture, which had suprapubic catheter management, eventually had an urethroplasty by Dr. Ward at the [facility]. Suprapubic catheter was removed a few months ago and he has been able to void without any difficulties. Apparently, recently developed some right testicular pain and had some injections applied about a week ago. Subsequently noted some clots in his urine flow and some yellow exudate, developed chills and then was admitted. Initial temperature 99.4, BP 120/70, pulse 102, respirations 20 and he appeared in no distress. Examination was fairly unremarkable. Currently, he is awake and alert. He is voiding without any difficulty. No burning. He did have some decreased stream briefly a few days ago. The testicular pain is not there anymore. No back pain. No joint symptoms. No respiratory symptoms. No diarrhea or constipation. PAST MEDICAL HISTORY: Longstanding HIV infection, well controlled with Prezcobix and Tivicay, pancreatitis, quite severe with protracted hospital stay, prior urinary infection associated with the urethral stricture, previous suprapubic catheter which has been removed after urethroplasty done at the [facility]. PAST MEDICAL HISTORY: Hypertension type 2 diabetes, and dyslipidemia. PAST SURGICAL HISTORY: Tonsillectomy, appendectomy, and the above surgery. SOCIAL HISTORY: Never smoker. No drug use otherwise. ALLERGIES: PENICILLIN AND SULFA WITH RASHES. MEDICATIONS: 1. Crestor. 2. Hyoscyamine. 3. Azelastine. 4. Prezcobix. 5. Pristiq. 6. Tivicay. 7. Jardiance. 9. Fenofibrate. 10. Glimepiride. 11. Vascepa. 12. Metformin. 13. Omeprazole. 14. Januvia. 15. Solifenacin. FAMILY HISTORY: Noncontributory. MEDICATIONS: Here at the hospital he is on medicines as above-mentioned and Rocephin and levofloxacin. PHYSICAL EXAMINATION: VITAL SIGNS: He has been afebrile in the hospital. Other vital signs are normal. GENERAL: Appears in no distress. LYMPHATICS: No lymphadenopathy. SKIN: Normal. Peripheral IV access. HEENT: Ocular movements conjugate. Oral cavity normal. NECK: Supple. LUNGS: Symmetric, clear breath sounds. S1-S2. Regular rate. No S3 or S4. ABDOMEN: Soft. No evidence of bladder distention. No organomegaly. No ascites. GENITOURINARY: The testicular exam was normal without tenderness. The left testicle was large than the right. EXTREMITIES: No joint inflammatory activity, moves extremities equally. No edema. NEUROLOGIC: Nonfocal. LABORATORY DATA: White cell count was 13,000 now is 9.4, hemoglobin 14, platelets 263, and neutrophil percentage of 64%. Sodium 137, creatinine is at 1.3, which is down from admission when it was 1.7. Liver profile normal. Serum total protein 8.9, albumin 4.3. Leukocyte esterase 500, WBC greater than 50. IMAGING: Chest x-ray with no acute cardiopulmonary process. ASSESSMENT: 1. Longstanding human immunodeficiency virus infection with excellent control on. 2. Prezcobix and Tivicay. 3. Urethral stricture, prior urinary tract infections and suprapubic catheter, status post urethroplasty. 4. Pain in the right testicle, which was managed with local injections recently , not clear what the medication was given. The patient recalls that he was corticosteroid. 5. Chills with abnormal urine color, some hematuria. DISCUSSION: The patient most likely has invasive UTI, the reason for it is not clear. If he still has an element of obstruction of the outflow tract due to the stricture recurrence for example is one thing to consider. We will check ultrasound of his postvoid bladder residue by the nurse and a CT stone protocol. Await for the identification of the susceptibilities of the Klebsiella Enterobacter retrieved. Blood cultures thus far negative. Dr. Ward is moving over to [facility] here and will be following up with him. Job ID: [id number] [facility]
[2019-05-13] MEDS ORDERED: diphenhydrAMINE 25 MG CAP PO SCH (00:45)
[2019-05-13] MEDS: Sodium Chloride 0.9% 1,000 ML IV SCH ×2 (01:09→16:08)
[2019-05-13 06:39] LABS: #Basophils 0.1 thou/uL (0.0-0.2); #Eosinphils 0.3 thou/uL (0.0-0.7); #Lymphocytes 2.2 thou/uL (1.20-3.40); #Monocytes 0.8 thou/uL (0.11-0.59); #Neutrophils 3.7 thou/uL (1.40-6.50); %Eosinophils 4.7 % (0.0-10.0); %Lymphocytes 30.8 % (21.0-51.0); %Monocytes 11.4 % (0.0-10.0); %Neutrophils 52.1 % (42.0-75.0); Mean Corpuscular HGB CONC 34.2 g/dL (32.0-36.0); Mean Corpuscular Hemoglobin 28.5 pg (27.0-31.0); Mean Corpuscular Volume 83.4 fL (78.0-98.0); Mean Platelet Volume 6.9 fL (7.4-10.4); Platelet Count 280 thou/uL (130-400); RBC Distribution Width 13.9 % (11.5-14.5); Red Blood Cell (RBC) Count 5.61 mill/uL (4.70-6.10); White Blood Cell (WBC) Count 7.2 thou/uL (4.8-10.8)
[2019-05-13 07:02] LABS: Anion Gap 15 mmol/L (10-20); BUN (Urea Nitrogen) 19 mg/dL (8.4-25.7); Calc. Creatinine Clearance 83 mL/min (70-130); Calcium 9.7 mg/dL (7.8-10.44); Carbon Dioxide 19 mmol/L (22-29); Chloride 107 mmol/L (98-107); Estimated GFR-MDRD 57; Glucose 146 mg/dL (70-105); Sodium 137 mmol/L (136-145)
--- NOTE | 2019-05-13 07:24 | PDOC.HOSPP ---
- Subjective Encounter Date: 05/13/19 Encounter Time: 07:22 Subjective: pt slept well with no overnight events. Denies fevers, chills, dysuria, hematuria, c/p, and SOB. was able to ambulate yesterday around the floor without any issues. seen by Dr. Sorensen yesterday who ordered a CT ab/pelvis. - Objective Vital Signs & Weight: Vital Signs (12 hours) Temp Pulse Resp BP Pulse Ox 05/12/19 20:00 98.8 F 94 18 138/90 94 L Weight Weight 94.999 kg I&O: 05/12/19 05/13/19 05/14/19 06:59 06:59 06:59 Intake Total 4540 1440 Balance 4540 1440 Result Diagrams: 05/14/19 06:10 05/14/19 06:10 Additional Labs: Accuchecks 05/13/19 05/12/19 05/12/19 04:47 20:02 16:43 POC Glucose 159 H 144 H 212 H 05/12/19 11:31 POC Glucose 171 H Radiology Reviewed by me: Yes EKG Reviewed by me: No Hospitalist ROS - Review of Systems Constitutional: denies: fever, chills, sweats Respiratory: denies: cough, shortness of breath, pleuritic pain Cardiovascular: denies: chest pain, edema Gastrointestinal: denies: abdominal pain, diarrhea, constipation Genitourinary: denies: dysuria, frequency, hematuria, retention - Medication Medications: Active Medications Generic Name Dose Route Start Last Admin Trade Name Freq PRN Reason Stop Dose Admin Alogliptin Benzoate 12.5 mg 05/12/19 09:00 05/12/19 08:07 Alogliptin PO 12.5 mg DAILY SANTANA Administration Azelastine HCl 0 ml 05/11/19 21:00 05/12/19 20:02 Azelastine NS 1 spray BID SANTANA Administration Ezetimibe 10 mg 05/12/19 09:00 05/12/19 08:08 Zetia PO 10 mg DAILY SANTANA Administration Fenofibrate 145 mg 05/12/19 09:00 05/12/19 08:07 Tricor PO 145 mg DAILY SANTANA Administration Glimepiride 4 mg 05/12/19 07:30 05/12/19 08:06 Amaryl PO 4 mg DAILY-AC SANTANA Administration Ceftriaxone Sodium 1 gm/ 100 mls @ 200 mls/hr 05/12/19 14:00 05/12/19 13:55 Sodium Chloride IVPB 100 mls 1400 SANTANA Administration Levofloxacin 750 mg/ Device 150 mls @ 100 mls/hr 05/12/19 12:00 05/12/19 11: 40 IVPB 150 mls 1200 SANTANA Administration Sodium Chloride 1,000 mls @ 100 mls/hr 05/11/19 19:00 05/13/19 01:09 Normal Saline 0.9% IV 1,000 mls .Q10H SANTANA Administration Insulin Human Lispro 0 units 05/12/19 16:35 05/12/19 17:31 Humalog SC 4 units .MODERATE SLIDING SC PRN Administration Moderate Correctional Scale Pantoprazole Sodium 40 mg 05/12/19 09:00 05/12/19 08:07 Protonix PO 40 mg DAILY SANTANA Administration Empagliflozin [ 0 each 05/12/19 09:00 05/12/19 08:12 Jardiance] 25 Mg PO 1 each DAILY SANTANA Administration Icosapent Ethyl [ 0 each 05/12/19 09:00 05/12/19 20:03 Vascepa] 1g Cap PO 2 each BID SANTANA Administration Darunavir/Cobicistat 0 each 05/12/19 21:00 05/12/19 20:05 [Prezcobix 800 Mg- PO 1 each 150 Mg Tablet] HS SANTANA Administration Dolutegravir Sodium 0 each 05/12/19 21:00 05/12/19 20:02 [Tivicay] 50 Mg PO 1 each HS SANTANA Administration Rosuvastatin Calcium 40 mg 05/12/19 21:00 05/12/19 20:01 Crestor PO 40 mg Q2D@2100 SANTANA Administration Trospium 20 mg 05/11/19 21:00 05/12/19 20:01 Trospium PO 20 mg BID SANTANA Administration Venlafaxine HCl 75 mg 05/12/19 09:00 05/12/19 08:07 Effexor Xr PO 75 mg DAILY SANTANA Administration - Exam General Appearance: awake alert ENT: normocephalic atraumatic, moist mucosa Neck: supple, no JVD Heart: RRR, no murmur, no gallops, no rubs Respiratory: CTAB, no wheezes, no rales, no ronchi Gastrointestinal: soft, non-tender, non-distended, normal bowel sounds, no palpable masses, no hepatomegaly, no splenomegaly, no guarding, no rigidity Extremities: no cyanosis, no edema Skin: normal turgor Neurological: CN's grossly intact Musculoskeletal: normal tone, normal strength, no muscle wasting Psychiatric: normal affect, normal behavior, A&O x 3 Hosp A/P (1) Severe sepsis Code(s): A41.9 - SEPSIS, UNSPECIFIED ORGANISM; R65.20 - SEVERE SEPSIS WITHOUT SEPTIC SHOCK Status: Resolved (2) UTI (urinary tract infection) Status: Acute (3) Acute worsening of stage 3 chronic kidney disease Code(s): N18.3 - CHRONIC KIDNEY DISEASE, STAGE 3 (MODERATE) Status: Resolved (4) HIV (human immunodeficiency virus infection) Status: Chronic (5) DM type 2 (diabetes mellitus, type 2) Status: Chronic - Plan Sepsis- improved with normalized WBC and stable vital signs x2 days. continue abx for now. Urinary- UTI- enterobactor ID on UCx. awaiting abx senstivities now. continue emperic coverage abx for now. Dr. Ward (Urology) will f/u with pt. CT ab/ pelvis showed urinary retention and suggested consideration of singh cath. Consulted Urology to see the pt. HIV- Dr. Sorensen following. continue HIV meds currently ordered. Glucose 159 this AM labs. continue current DM treatment with moderate insulin sliding scale. Walking program- pt ambulated well yesterday. cont. ambulation as tolerated. Addendum by Devon Musa MD: Chart reviewed, pt seen by me. Discussed case with Luisito. Agree with plan of care as documented. Please refer to my separate progress note for further details.
[2019-05-13] MEDS: Glimepiride 4 MG TAB PO SCH (07:54)
[2019-05-13] MEDS: Fenofibrate Nanocrystallized 145 MG TAB PO SCH (07:55)
[2019-05-13] MEDS: Venlafaxine HCl XR 75 MG CAP PO SCH (07:55)
[2019-05-13] MEDS: Alogliptin 25 MG TAB PO SCH (07:55)
[2019-05-13] MEDS: Trospium 20 MG TAB PO SCH ×2 (07:55→20:49)
[2019-05-13] MEDS: Ezetimibe 10 MG TAB PO SCH (07:55)
[2019-05-13] MEDS: Azelastine 137 MCG/Spray 30 ML NS SCH ×2 (07:58→20:51)
[2019-05-13] MEDS: Empagliflozin [Jardiance] 25 MG PO SCH (07:58)
[2019-05-13] MEDS: ICOSAPENT ETHYL 1 GM PO SCH ×2 (07:59→20:51)
[2019-05-13] MEDS: cefTRIAXone\\ROCEPHIN 1 GM in Sodium Chloride 0.9% 100 ML IVPB SCH (14:30)
--- NOTE | 2019-05-13 16:26 | PDOC.HOSPP ---
- Subjective Encounter Date: 05/13/19 Encounter Time: 08:20 Subjective: Pt seen for followup re: UTI. Feels well, no complaints. - Objective Vital Signs & Weight: Vital Signs (12 hours) Temp Pulse Resp BP Pulse Ox 05/13/19 15:38 95 05/13/19 08:00 95 05/13/19 07:54 97.6 F 93 20 133/90 95 Weight Weight 209 lb 7 oz I&O: 05/12/19 05/13/19 05/14/19 06:59 06:59 06:59 Intake Total 4540 1440 960 Balance 4540 1440 960 Result Diagrams: 05/13/19 06:29 05/13/19 06:29 Additional Labs: Accuchecks 05/13/19 05/12/19 05/12/19 04:47 20:02 16:43 POC Glucose 159 H 144 H 212 H Labs and MARs reviewed by al Hospitalist ROS - Review of Systems Respiratory: denies: cough, dry, shortness of breath, hemoptysis, SOB with excertion, pleuritic pain, sputum, wheezing Cardiovascular: denies: chest pain, palpitations, orthopnea, paroxysmal noc. dyspnea, edema, light headedness - Medication Medications: Active Medications Generic Name Dose Route Start Last Admin Trade Name Freq PRN Reason Stop Dose Admin Alogliptin Benzoate 12.5 mg 05/12/19 09:00 05/13/19 07:55 Alogliptin PO 12.5 mg DAILY SANTANA Administration Azelastine HCl 0 ml 05/11/19 21:00 05/13/19 07:58 Azelastine NS 1 spray BID SANTANA Administration Ezetimibe 10 mg 05/12/19 09:00 05/13/19 07:55 Zetia PO 10 mg DAILY SANTANA Administration Fenofibrate 145 mg 05/12/19 09:00 05/13/19 07:55 Tricor PO 145 mg DAILY SANTANA Administration Glimepiride 4 mg 05/12/19 07:30 05/13/19 07:54 Amaryl PO 4 mg DAILY-AC SANTANA Administration Sodium Chloride 1,000 mls @ 100 mls/hr 05/11/19 19:00 05/13/19 16:08 Normal Saline 0.9% IV 1,000 mls .Q10H SANTANA Administration Insulin Human Lispro 0 units 05/12/19 16:35 05/12/19 17:31 Humalog SC 4 units .MODERATE SLIDING SC PRN Administration Moderate Correctional Scale Pantoprazole Sodium 40 mg 05/12/19 09:00 05/13/19 07:55 Protonix PO 40 mg DAILY SANTANA Administration Empagliflozin [ 0 each 05/12/19 09:00 05/13/19 07:58 Jardiance] 25 Mg PO 1 each DAILY SANTANA Administration Icosapent Ethyl [ 0 each 05/12/19 09:00 05/13/19 07:59 Vascepa] 1g Cap PO 2 each BID SANTANA Administration Darunavir/Cobicistat 0 each 05/12/19 21:00 05/12/19 20:05 [Prezcobix 800 Mg- PO 1 each 150 Mg Tablet] HS SANTANA Administration Dolutegravir Sodium 0 each 05/12/19 21:00 05/12/19 20:02 [Tivicay] 50 Mg PO 1 each HS SANTANA Administration Rosuvastatin Calcium 40 mg 05/12/19 21:00 05/12/19 20:01 Crestor PO 40 mg Q2D@2100 SANTANA Administration Trospium 20 mg 05/11/19 21:00 05/13/19 07:55 Trospium PO 20 mg BID SANTANA Administration Venlafaxine HCl 75 mg 05/12/19 09:00 05/13/19 07:55 Effexor Xr PO 75 mg DAILY SANTANA Administration - Exam General Appearance: NAD Eye: anicteric sclera ENT: moist mucosa Neck: supple Heart: RRR Respiratory: CTAB Gastrointestinal: soft Neurological: no weakness Psychiatric: normal affect, normal behavior Hosp A/P (1) UTI (urinary tract infection) Status: Acute (2) Obstructive uropathy Code(s): N13.9 - OBSTRUCTIVE AND REFLUX UROPATHY, UNSPECIFIED Status: Acute (3) DM type 2 (diabetes mellitus, type 2) Status: Chronic (4) HIV (human immunodeficiency virus infection) Status: Chronic (5) Severe sepsis Code(s): A41.9 - SEPSIS, UNSPECIFIED ORGANISM; R65.20 - SEVERE SEPSIS WITHOUT SEPTIC SHOCK Status: Resolved (6) Acute worsening of stage 3 chronic kidney disease Code(s): N18.3 - CHRONIC KIDNEY DISEASE, STAGE 3 (MODERATE) Status: Resolved - Plan continue antibiotics, out of bed/ambulate Pt is on oral levofloxacin. Pt has dee hydronephrosis, ? secondary to urethral stricture. Consult urology. Creatinine improved to 1.29. Consult walking program. Leucocytosis resolved. Metabolic acidosis resolved. Continue Tivicay and Prezcobix for HIV. Blood sugars high, switch to aggressive insulin sliding scale.
[2019-05-13] MEDS ORDERED: HumaLOG 300 UNITS/3 ML VIAL SC PRN (16:32)
--- NOTE | 2019-05-13 17:27 | PRG ---
DATE OF SERVICE: 05/13/2019 SUBJECTIVE: Mr. Harvey's CT showed hydronephrosis and bladder distention. He still states he is able to void. He does not have discomfort at this time. No respiratory symptoms. No abdominal pain. No diarrhea. OBJECTIVE: VITAL SIGNS: T-max is 100.2, he is now 97.6, blood pressure 130/90, pulse 93, respirations 20, and O2 saturation 95%. GENERAL: Appears in no distress. LUNGS: Clear. HEART: S1 and S2. ABDOMEN: Soft, mildly distended. : Question of bladder distention. EXTREMITIES: No edema. Cognitive function normal. LABORATORY DATA: White cell count 7.2, hemoglobin 16, platelets 280. Sodium 137 and creatinine 1.29. Enterobacter aerogenes with a broad susceptibility profile including quinolones. ASSESSMENT AND DISCUSSION: Well-controlled human immunodeficiency virus infection with other issues related to his urinary tract with urethral stricture, which requires suprapubic catheterization for a long time. Eventual urethroplasty by Dr. Ward, now the patient with recurrence of urinary infection, what appears to be a possible recurrence of the urethral stricture. We will ask the nurse to repeat the postvoid residual at the bedside. He may need a suprapubic catheter placed again and certainly needs to have re-evaluation by Urology. Job ID: [id number]
[2019-05-13] MEDS: Tamsulosin HCl 0.4 MG CAP PO SCH (20:49)
[2019-05-13] MEDS: Ciprofloxacin 500 MG TAB PO SCH (20:49)
[2019-05-13] MEDS: Darunavir/Cobicistat [Prezcobix 800 Mg-150 Mg Tablet] PO SCH (20:50)
[2019-05-13] MEDS: Dolutegravir Sodium [Tivicay] 50 MG PO SCH (20:50)
--- NOTE | 2019-05-14 01:07 | CON ---
UROLOGY CONSULTATION DATE OF CONSULTATION: 05/13/19 BRIEF HISTORY: Mr. Harvey is a 58-year-old white male, with past history of ER evaluations for bladder outlet obstruction and past urethroplasty operation by Dr. Jere Ward at the [facility]. He is HIV positive and has a presentation concerning for UTI and sepsis. He has been having difficulty voiding on this hospital admission and is in retention wtih about 900 ml PVR. PHYSICAL EXAMINATION: VITAL SIGNS: As per chart. GENERAL: This is a heavyset white male, in no apparent distress. HEAD, EYES, EARS, NOSE, AND THROAT: Extraocular movements are intact. Sclerae are anicteric. Oropharynx is clear. NECK: Supple. LUNGS: Clear to auscultation bilaterally. CARDIAC: Regular rate and rhythm without murmur, rub, or gallop. ABDOMEN: Soft and nontender as well about the umbilicus, fullness and discomfort below the umbilicus. Old scar from SPT. : Penis without external lesion. Testis benign atrophic, no inguinal hernia. MARY prostate 40 g , minimally tender. rubbery, no mass. EXT: no issues, No CCE. REVIEW OF SYSTEMS: Negative x12 systems except for genitourinary where there is complaint of urinary frequency with incomplete bladder emptying. There is a recent past history of suprapubic tube as well. All systems were reviewed to be normal. PAST MEDICAL HISTORY: 1. HIV. 2. Hypertension. 3. Diabetes mellitus. 4. Dyslipidemia. 5. Pancreatitis. PAST SURGICAL HISTORY: 1. Tonsillectomy. 2. Appendectomy. 3. Surgery for urethral stricture disease. ALLERGIES: THE PATIENT REPORTS ALLERGIES TO PENICILLIN WELL SULFA DRUGS. COMPLETE OUTPATIENT MEDICATION LIST: Includes; 1. Crestor 40 mg every other day. 2. Hyoscyamine 0.125 mg p.o. q.hours as needed. 3. Stelazine nasal spray, one spray to each naris twice daily. 4. Prezcobix 1 tablet p.o. daily. 5. Pristiq 50 mg p.o. daily. 6. Tivicay 50 mg per day. 7. Jardiance 25 mg p.o. daily. 8. Ezetimibe 10 mg per day. 9. Fenofibrate 145 mg p.o. daily. 10. Glimepiride 4 mg p.o. daily. 11. Omeprazole 40 mg p.o. daily. 12. Januvia 50 mg p.o. daily. 13. Solifenacin 5 mg p.o. daily. FAMILY MEDICAL HISTORY: Negative for coronary artery disease. PHYSICAL EXAMINATION: VITAL SIGNS: The patient is currently afebrile with temperature of 98.4, pulse 105, respirations 20, O2 saturation on room air is 99%. Blood pressure is 131/83. HEAD, EYES, EARS, NOSE, AND THROAT: Extraocular movements are intact. Sclerae are anicteric. Oropharynx is clear. NECK: Supple. LUNGS: Clear to auscultation bilaterally. CARDIAC: Regular rate and rhythm without murmur, rub, or gallop. ABDOMEN: Soft, obese, nontender. GENITOURINARY: Phallus is without apparent lesion. Testes are found present bilaterally in the scrotum. They are smooth, a nodular, and nontender. BACK: Reveals no abnormalities either. GENITOURINARY: Phallus is without lesion. Testes are benign bilaterally. Digital rectal examination finds prostate gland conservatively measuring about 30 g in size. Its overall characteristics are consistent with a degree of BPH, possibly with inflammation. LABORATORY STUDIES: White count is progressively decreased during hospitalization, now down to 7200. Serum chemistry show a creatinine of 1.29 with a blood urea nitrogen of 19 leading to an estimated glomerular filtration rate of 57, blood glucoses remain elevated. Urinalysis shows greater than 1000 mg/dL of glucose, 10 ketones which is abnormal, and 1+ blood. Leukocyte esterase is elevated. Red cell count is 0 to 3 and white blood cell count in urine is greater than 50. There is 4+ bacteria on urinalysis. The patient's bladder scan shows about 900 mL of urine in the patient's bladder. ASSESSMENT AND PLAN: Urinary retention. It is either secondary to recurrence of the patient's urethral stricture, BPH, constipation, or other cause. At the present time, I recommended maximal medical therapy for the patient's prostate hypertrophy and recommended the patient have cystoscopic evaluation and probable SP tube placement. The patient declined surgical intervention today. He is refusing therapy unless I consult with Dr. Ward. He states he does not want any tubes for management. I am recommending that he be made n.p.o. after midnight where he will be started on maximal medical therapy in hopes that this will improve his voiding function tonight. I will try to discuss his case with Dr. Ward who may or may not be able to evaluate him in the hospital tomorrow ( I am uncertain of his privilege status as Dr. Ward is transitioning his practice to this hospital. We will decide on his future disposition after reassessment of his voiding function in the morning. Presumptively there is a stricture process and BPH involved in the current retention. Over 70 minutes of initial evaluation, consultation, and assessment time was spent on this patient today. Job ID: [id number] [facility]
[2019-05-14] MEDS: Sodium Chloride 0.9% 1,000 ML IV SCH (03:45)
[2019-05-14] MEDS: Ciprofloxacin 500 MG TAB PO SCH (05:35)
[2019-05-14 06:22] LABS: #Basophils 0.1 thou/uL (0.0-0.2); #Eosinphils 0.3 thou/uL (0.0-0.7); #Lymphocytes 3.3 thou/uL (1.20-3.40); #Monocytes 0.9 thou/uL (0.11-0.59); #Neutrophils 4.7 thou/uL (1.40-6.50); %Basophils 0.9 % (0.0-1.0); %Eosinophils 3.3 % (0.0-10.0); %Lymphocytes 35.5 % (21.0-51.0); %Monocytes 10.1 % (0.0-10.0); %Neutrophils 50.3 % (42.0-75.0); Hemoglobin 16.1 g/dL (14.0-18.0); Mean Corpuscular HGB CONC 34.4 g/dL (32.0-36.0); Mean Corpuscular Hemoglobin 28.5 pg (27.0-31.0); Mean Corpuscular Volume 82.8 fL (78.0-98.0); Mean Platelet Volume 6.8 fL (7.4-10.4); Platelet Count 327 thou/uL (130-400); RBC Distribution Width 13.8 % (11.5-14.5); Red Blood Cell (RBC) Count 5.65 mill/uL (4.70-6.10); White Blood Cell (WBC) Count 9.3 thou/uL (4.8-10.8)
[2019-05-14 06:48] LABS: Anion Gap 17 mmol/L (10-20); BUN (Urea Nitrogen) 20 mg/dL (8.4-25.7); Calc. Creatinine Clearance 67 mL/min (70-130); Carbon Dioxide 20 mmol/L (22-29); Chloride 105 mmol/L (98-107); Estimated GFR-MDRD 44; Glucose 207 mg/dL (70-105); Potassium 4.1 mmol/L (3.5-5.1); Sodium 138 mmol/L (136-145)
[2019-05-14] MEDS: Glimepiride 4 MG TAB PO SCH (07:30)
[2019-05-14] MEDS: Alogliptin 25 MG TAB PO SCH (07:31)
[2019-05-14] MEDS: Ezetimibe 10 MG TAB PO SCH (07:31)
[2019-05-14] MEDS: Fenofibrate Nanocrystallized 145 MG TAB PO SCH (07:31)
[2019-05-14] MEDS: Tamsulosin HCl 0.4 MG CAP PO SCH (07:32)
[2019-05-14] MEDS: Venlafaxine HCl XR 75 MG CAP PO SCH (07:32)
[2019-05-14] MEDS: Trospium 20 MG TAB PO SCH (07:32)
[2019-05-14] MEDS: ICOSAPENT ETHYL 1 GM PO SCH (07:32)
[2019-05-14 07:37] VITALS: BP 133/88; TEMP 98.2
[2019-05-14] MEDS: Azelastine 137 MCG/Spray 30 ML NS SCH (08:01)
--- NOTE | 2019-05-14 08:18 | PDOC.HOSPP ---
- Subjective Encounter Date: 05/14/19 Encounter Time: 08:14 Subjective: pt slept well with no overnight events. denies fever, chills ,SOB, c/p, N/V, ab pain, or dysuria. pt strongly prefers medical management to any possible surgical procedures, especially any superpubic catheterization . pt has been NPO since midnight. pt has been able to urinate on his own throughout the last 24 hrs. - Objective Vital Signs & Weight: Vital Signs (12 hours) Temp Pulse Resp BP Pulse Ox 05/14/19 07:35 98.2 F 98 20 133/88 94 L Weight Weight 94.999 kg I&O: 05/13/19 05/14/19 05/15/19 06:59 06:59 06:59 Intake Total 1440 3880 Output Total 1800 Balance 1440 2080 Result Diagrams: 05/14/19 06:10 05/14/19 06:10 Additional Labs: Accuchecks 05/14/19 05/13/19 05/13/19 04:43 20:03 16:42 POC Glucose 167 H 231 H 182 H Radiology Reviewed by me: No EKG Reviewed by me: No Hospitalist ROS - Review of Systems Constitutional: denies: fever, chills, sweats Respiratory: denies: shortness of breath Cardiovascular: denies: chest pain Gastrointestinal: denies: nausea, vomitting, abdominal pain, diarrhea, constipation Genitourinary: denies: dysuria, frequency, hematuria - Medication Medications: Active Medications Generic Name Dose Route Start Last Admin Trade Name Freq PRN Reason Stop Dose Admin Alogliptin Benzoate 12.5 mg 05/12/19 09:00 05/14/19 07:31 Alogliptin PO Not Given DAILY SANTANA Azelastine HCl 0 ml 05/11/19 21:00 05/14/19 08:01 Azelastine NS 1 spray BID SANTANA Administration Ciprofloxacin 500 mg 05/13/19 20:00 05/14/19 05:35 Cipro PO 500 mg 06,1999 SANTANA Administration Ezetimibe 10 mg 05/12/19 09:00 05/14/19 07:31 Zetia PO Not Given DAILY SANTANA Fenofibrate 145 mg 05/12/19 09:00 05/14/19 07:31 Tricor PO Not Given DAILY SANTANA Finasteride 5 mg 05/14/19 09:00 05/14/19 07:31 Proscar PO Not Given DAILY SANTANA Glimepiride 4 mg 05/12/19 07:30 05/14/19 07:30 Amaryl PO Not Given DAILY-AC [facility] Sodium Chloride 1,000 mls @ 100 mls/hr 05/11/19 19:00 05/14/19 03:45 Normal Saline 0.9% IV 1,000 mls .Q10H SANTANA Administration Insulin Human Lispro 0 units 05/13/19 16:32 05/13/19 17:21 Humalog SC 3 units .AGGRESSIVE SLIDING PRN Administration Aggressive Correctional Scale Pantoprazole Sodium 40 mg 05/12/19 09:00 05/14/19 07:31 Protonix PO Not Given DAILY SANTANA Empagliflozin [ 0 each 05/12/19 09:00 05/13/19 07:58 Jardiance] 25 Mg PO 1 each DAILY SANTANA Administration Icosapent Ethyl [ 0 each 05/12/19 09:00 05/14/19 07:32 Vascepa] 1g Cap PO Not Given BID SANTANA Darunavir/Cobicistat 0 each 05/12/19 21:00 05/13/19 20:50 [Prezcobix 800 Mg- PO 1 each 150 Mg Tablet] HS SANTANA Administration Dolutegravir Sodium 0 each 05/12/19 21:00 05/13/19 20:50 [Tivicay] 50 Mg PO 1 each HS SANTANA Administration Rosuvastatin Calcium 40 mg 05/12/19 21:00 05/12/19 20:01 Crestor PO 40 mg Q2D@2100 SANTANA Administration Tamsulosin HCl 0.4 mg 05/13/19 21:00 05/14/19 07:32 Flomax PO Not Given BID SANTANA Trospium 20 mg 05/11/19 21:00 05/14/19 07:32 Trospium PO Not Given BID [facility] Venlafaxine HCl 75 mg 05/12/19 09:00 05/14/19 07:32 Effexor Xr PO Not Given DAILY SANTANA - Exam General Appearance: awake alert Eye: anicteric sclera ENT: normocephalic atraumatic, no oropharyngeal lesions Neck: supple, no JVD Heart: RRR, no murmur, no gallops, no rubs, normal peripheral pulses Respiratory: CTAB, no wheezes, no rales, no ronchi Gastrointestinal: soft, non-tender, non-distended, normal bowel sounds Extremities: no cyanosis, no clubbing, no edema Skin: normal turgor Neurological: CN's grossly intact Psychiatric: normal affect, normal behavior, A&O x 3 Hosp A/P (1) Severe sepsis Code(s): A41.9 - SEPSIS, UNSPECIFIED ORGANISM; R65.20 - SEVERE SEPSIS WITHOUT SEPTIC SHOCK Status: Resolved (2) UTI (urinary tract infection) Status: Acute (3) Acute worsening of stage 3 chronic kidney disease Code(s): N18.3 - CHRONIC KIDNEY DISEASE, STAGE 3 (MODERATE) Status: Resolved (4) HIV (human immunodeficiency virus infection) Status: Chronic (5) DM type 2 (diabetes mellitus, type 2) Status: Chronic - Plan Sepsis- improved with normalized WBC and stable vital signs x3 days. continue abx for now. Urinary- UTI- enterobactor ID on UCx. continue abx. Dr. Uribe consulted yesterday and recommended medical treatment for prostate and NPO status for possible cystoscopic evaluation and probable SP stent placement today. urology was going to coordinate with Dr. Ward (primary urologist for pt) this morning, evaluate his voiding overnight and this AM, and then make a decision on how to approach. HIV- Dr. Sorensen following. continue HIV meds currently ordered. Glucose 207 this AM labs. continue current DM treatment with increase to aggressive sliding scale insulin yesterday. Walking program- cont. ambulation as tolerated.
[2019-05-14] MEDS ORDERED: Finasteride 5 MG TAB PO SCH (09:00)
--- NOTE | 2019-05-14 16:40 | CON ---
DATE OF CONSULTATION: 05/14/2019 BRIEF HISTORY: Mr. Harvey is a 58-year-old white male with HIV and urinary tract issues, which include BPH and history of urethral stricture disease. He is status post previous urethroplasty operation by Dr. Jere Ward of the [facility]. The patient presented with symptoms suggesting urinary retention, UTI, and sepsis. The patient has a current postvoid residual in the range of 900 mL. Overnight, the patient has had no major changes. He does not have an indwelling Kaur catheter or other drainage for his bladder and is refusing placement of a Kaur catheter, cystoscopic evaluation, or SP tube placement at this point. I had approximately 10-minute conversation with the patient's urologist, Dr. Ward, today regarding his recommendations for treatment plans. Dr. Ward is not yet credentialed this hospital was not able to around, evaluate, or assess this patient in this setting. Based on his knowledge of Mr. Harvey and previous surgery, he recommended placement of a suprapubic tube. A suprapubic tube was offered to Mr. Harvey and he is refusing an intervention or any tube placement of any type. The patient is desiring to leave against medical advice this morning. PHYSICAL EXAMINATION: VITAL SIGNS: The patient is afebrile with current temperature of 98.2, pulse 98, respirations 20, O2 saturation on room air is 94%, and blood pressure is 133/88. GENERAL: This is a heavyset white male, in no distress. HEAD, EYES, EARS, NOSE, AND THROAT: Extraocular movements are intact. Sclerae are anicteric. Oropharynx is clear. LUNGS: Clear to auscultation bilaterally. CARDIAC: Regular rate and rhythm without murmur, rub, or gallop. ABDOMEN: Soft and nontender. There is suprapubic fullness on palpation of lower abdomen. GENITOURINARY: No indwelling Kaur catheter is in place. EXTREMITIES: Within normal limits. DIAGNOSTIC DATA: Bladder scans have been performed by nursing staff and were in the range of 800 to 900 mL. I's and O's, the patient has had about 1800 mL of urine output in the last 24 hours. He is voiding into a urinal when he does do it, but is not emptying completely. Microbiology, the patient on 05/11/2019 had Enterobacter aerogenes and gram-negative joe isolated. The patient's white count is down to 9.3 from 13.2 at entry and admission. The left shift at 76% neutrophils is down to 50% at present. ASSESSMENT AND PLAN: 1. Benign prostatic hypertrophy. Recommending the patient to be maintained on long-term antibiotic therapy. In addition, Flomax twice daily at 0.4 mg p.o. b.i.d. and finasteride at 5 mg p.o. daily. 2. Urethral stricture disease. This patient most likely has recurrence of urethral stricture disease and possibly in addition to benign prostatic hypertrophy issues, a suprapubic tube is recommended for drainage of the patient's bladder. This is declined by the patient. 3. Continued hospitalization. This patient is desiring to leave against medical advice. Further discussion, I am available during weekdays for consultation if the patient is desiring a suprapubic tube. Alternatively, this may be placed by Interventional Radiology. Job ID: [id number]
--- NOTE | 2019-05-15 03:11 | DIS ---
DATE OF ADMISSION: 05/11/2019 DATE OF DISCHARGE: 05/14/2019 PRIMARY CARE PROVIDER: Dr. Osman Clarke. The patient left against medical advice on 05/14/2019. DIAGNOSES: 1. Severe sepsis. 2. Urinary tract infection. 3. Acute kidney injury. 4. Metabolic acidosis. 5. Obstructive uropathy. 6. Bilateral hydronephrosis. CONSULTATIONS DURING THIS HOSPITALIZATION: Infectious Diseases, Dr. Sorensen and Urology, Dr. Devon Uribe. HOSPITAL COURSE: Mr. Harvey is a pleasant 58-year-old gentleman, who was admitted to [facility] on 05/11/2019, for severe sepsis secondary to urinary tract infection. Final urine cultures grew Enterobacter aerogenes that was resistant to cefoxitin, intermediate sensitivity to nitrofurantoin but was sensitive to amikacin, cefepime, ceftazidime, ceftriaxone, ciprofloxacin, gentamicin, levofloxacin, Zosyn, tobramycin, and Bactrim. He was seen by Infectious Disease Service. CT scan of the abdomen and pelvis done without contrast showed bilateral moderate to severe hydronephrosis without urolithiasis, severely distended urinary bladder, hepatic steatosis, and cholelithiasis without evidence of acute cholecystitis. He was seen by Urology Service. He was recommended suprapubic catheter placement. The patient did not wish to have suprapubic catheter placed. He left against medical advice on 05/14/2019. Many thanks for allowing me to participate in your patient's care. Please feel free to contact me with any questions or concerns. Job ID: [id number]
== END 2019-05-14 10:14 | disposition left against medical advice (07) | DRG 872 ==
LOC: ERS 11:37 → ERHOLD 13:38 → T4-A 16:23
PROVIDERS: ADMIT Internal Medicine; ATTEND Internal Medicine
DX: A41.89 Other specified sepsis (principal); N17.9 Acute kidney failure, unspecified; E87.2 Acidosis; N13.6 Pyonephrosis; R65.20 Severe sepsis without septic shock; E78.5 Hyperlipidemia, unspecified; Z21 Asymptomatic human immunodeficiency virus [HIV] infection status; I12.9 Hypertensive chronic kidney disease with stage 1 through stage 4 chronic kidney disease, or unspecified chronic kidney disease; E11.22 Type 2 diabetes mellitus with diabetic chronic kidney disease; N18.3 Chronic kidney disease, stage 3 (moderate); N13.9 Obstructive and reflux uropathy, unspecified; N40.1 Benign prostatic hyperplasia with lower urinary tract symptoms; R33.8 Other retention of urine; Z16.39 Resistance to other specified antimicrobial drug; K76.0 Fatty (change of) liver, not elsewhere classified; K80.20 Calculus of gallbladder without cholecystitis without obstruction; Z90.49 Acquired absence of other specified parts of digestive tract; Z90.89 Acquired absence of other organs; Z88.0 Allergy status to penicillin; Z88.2 Allergy status to sulfonamides; Z79.84 Long term (current) use of oral hypoglycemic drugs
CPT/HCPCS: 36415; 36416; 71045; 74176; 80048; 80053; 81003; 81015; 82010; 83605; 84484; 85025; 87040; 87077; 87086; 87186; 87804; 93005; 94760; 96360; 96361; 96365; 96366; 96368; J0696; J1956; J3370; J3490; J7050; Q0163